=== PATIENT | male | born 1990 | race Caucasian/White ===

== ENCOUNTER → 2020-07-13 15:51 | Outpatient (CLI) | payer BC, SELFPAY | PROVIDERS: PCP Nurse Practitioner Family; Visit Provider Nurse Practitioner Family | DX: Z20.822 Contact with and (suspected) exposure to COVID-19 (principal) | CPT/HCPCS: U0003 ==

== ENCOUNTER 2021-03-28 13:51 | Emergency (ER) | payer BC, SELFPAY ==
--- NOTE | 2021-03-28 14:36 | PC.NURSE ---
PT brought over from [facility]
[2021-03-28 14:37] VITALS: BP 150/101; PULSE 86; RESP 16; TEMP 37; O2SAT 99; BMI 30.7
--- NOTE | 2021-03-28 14:37 | CT_ITS ---
PROCEDURE INFORMATION: Exam: CT Head Without Contrast Exam date and time: 03/28/2021 2:37 PM Age: 30 years old Clinical indication: Syncope and collapse TECHNIQUE: Imaging protocol: Computed tomography of the head without contrast. Radiation optimization: All CT scans at this facility use at least one of these dose optimization techniques: automated exposure control; mA and/or kV adjustment per patient size (includes targeted exams where dose is matched to clinical indication); or iterative reconstruction. COMPARISON: No relevant prior studies available. FINDINGS: Brain: No hemorrhage, mass effect or midline shift. Cerebral ventricles: No ventriculomegaly. Paranasal sinuses: Mucosal thickening noted within both maxillary sinuses. Mastoid air cells: Visualized mastoid air cells are well aerated. Bones/joints: No acute fracture. Soft tissues: No acute changes IMPRESSION: No hemorrhage, mass effect or midline shift.
--- NOTE | 2021-03-28 14:37 | XR_ITS ---
PROCEDURE: XR CHEST PORTABLE CLINICAL HISTORY: syncope COMPARISON: No exams were available for comparison FINDINGS: The cardiomediastinal silhouette and pulmonary vascularity are within normal limits. This is a lordotic projection however the lung alanis are fairly well expanded and appear clear of infiltrate. There is no pleural fluid. No acute bony abnormalities. IMPRESSION: No acute findings. Dictated by: Dr. Chandan Figueroa MD 03/29/2021 15:35 Dr. Chandan Figueroa MD in [place] 03/29/2021 15:35
--- NOTE | 2021-03-28 14:37 | ECG_ITS ---
APPROVED REPORT Exam: Resting ECG HR:79 bpm ECG Measurements Heart Rate 79 AXES IA 140 P 22 QRSd 88 QRS 55 QT 358 T 33 QTc 410 Conclusion Normal sinus rhythm Normal ECG Electronically signed by : Royal Serrano MD 03/29/2021 14:28:30
[2021-03-28 14:49] LABS: Basophils % 0.6 % (0.1-2.0); Eosinophils % 0.6 % (0.1-12.0); Hematocrit 45.6 % (42.0-52.0); Hemoglobin 15.7 g/dL (14.1-18.0); Lymphocytes # 1.5 K/mm3 (0.7-4.5); Lymphocytes % 24.5 % (10-50); Mean Corpuscular HGB Conc 34.3 g/dL (31.8-35.4); Mean Corpuscular Hemoglobin 31.9 pg (27.0-31.2); Mean Platelet Volume 8.9 fl (7.4-10.4); Monocytes # 0.4 K/mm3 (0.1-1.0); Monocytes % 5.7 % (1.7-9.3); Neutrophils # 4.3 K/mm3 (1.8-7.8); Neutrophils % 68.7 % (37.0-80.0); Platelet Count 241 K/mm3 (142-424); Red Blood Count 4.91 M/mm3 (4.60-6.20); Red Cell Distribution Width 12.8 % (11.5-17.5); White Blood Count 6.2 K/mm3 (4.8-10.8)
[2021-03-28 14:52] LABS: Chloride 99 mmol/L (98-107); Potassium 3.9 mmoL/L (3.5-5.1); Sodium 137 mmol/L (136-145)
[2021-03-28 14:54] LABS: Blood Urea Nitrogen 16 mg/dl (9-20); Creatinine Clearance Estimated 173 mL/min (50-200); Estimated Glomerular Filt Rate 115 ml/min (>60); GFR (African American) 139 ML/MIN (>60)
[2021-03-28 14:55] LABS: Alanine Aminotransferase 26 U/L (12-78); Albumin Level 4.6 g/dl (3.5-5.0); Albumin/Globulin Ratio 1.2 (1.1-1.8); Alkaline Phosphatase 68 U/L (38-126); Anion Gap 13.9 mEq/L (5-15); Aspartate Amino Transferase 37 U/L (17-59); Bilirubin,Total 0.6 mg/dl (0.2-1.3); Calcium 9.3 mg/dl (8.4-10.2); Carbon Dioxide 28 mmol/L (22.0-30.0); Globulin 3.7 g/dL (1.3-3.2); Glucose 98 mg/dl (74-100); Total Protein,Serum 8.3 g/dl (6.3-8.2)
[2021-03-28 15:09] LABS: Troponin I < 0.01 ng/ml (0.00-0.034)
[2021-03-28 15:16] LABS: Coronavirus 19, PCR Not Detected (NotDetected); Influenza A, PCR Not Detected (NotDetected); Influenza B, PCR Not Detected (NotDetected)
--- NOTE | 2021-03-28 16:21 | HMH.EDGENADL ---
ED Disposition Clinical Impression: Lightheadedness Disposition: Home, Self-Care Condition on Discharge: Good Additional Instructions: Stay well-hydrated. Follow-up with your outpatient nurse practitioner in the next 2 to 3 days. Return emerge department chest pain, shortness of breath, lightheadedness. Referrals: Juana Bowles APRN [Primary Care Provider] - Time of Disposition: 16:25 - Critical Care Critical Care Time: No Attestation: On 03/28/21, the high probability of a clinically significant, sudden or life threatening deterioration of the following system(s) required my full and direct attention, intervention and personal management. The time I documented below is in addition to time spent performing reported procedures but includes the following listed in this critical care notation. Medical Decision Making - Medical Records Medical records reviewed: Yes: I reviewed the patient's medical records. - Benji Inquiry Pt receiving controlled substance: No Vital Signs: 03/28/21 14:37 Temperature 98.6 F Temperature Source Oral Pulse Rate [Right] 86 Respiratory Rate 16 Blood Pressure [Right Arm] 150/101 H Blood Pressure Mean [Right Arm] 117 Blood Pressure Source [Right Arm] Automatic Cuff Blood Pressure Position [Right Arm] Sitting 02 Sat by Pulse Oximetry 99 Oxygen Delivery Method Room Air - Lab Data Lab results reviewed: Yes: I reviewed the patient's lab results. Lab Results 03/28/21 14:38: WBC 6.2, RBC 4.91, Hgb 15.7, Hct 45.6, MCV 93.0, MCH 31.9 H, MCHC 34.3, RDW 12.8, Plt Count 241, MPV 8.9, Neut % (Auto) 68.7, Lymph % (Auto) 24.5, Branch % (Auto) 5.7, Eos % (Auto) 0.6, Baso % (Auto) 0.6, Neut # (Auto) 4.3, Lymph # (Auto) 1.5, Branch # (Auto) 0.4, Eos # (Auto) 0.0, Baso # (Auto) 0.0 03/28/21 14:38: Sodium 137, Potassium 3.9, Chloride 99, Carbon Dioxide 28, Anion Gap 13.9, BUN 16, Creatinine 0.80, Estimated Creat Clear 173, Estimated GFR 115, Est GFR ( Amer) 139, Glucose 98, Calcium 9.3, Total Bilirubin 0.6, AST 37, ALT 26, Alkaline Phosphatase 68, Troponin I < 0.01, Total Protein 8.3 H, Albumin 4.6, Globulin 3.7 H, Albumin/Globulin Ratio 1.2 03/28/21 14:45: SARS-CoV-2 (PCR) Not detected, Influenza A Untype (PCR) Not detected, Influenza Type B (PCR) Not detected Result diagrams: 03/28/21 14:38 03/28/21 14:38 Orders (Tests/Meds): ORDERS Category Date Time Status XR chest portable Stat Exams 03/28/21 14:37 Taken Troponin I Q3H Lab 03/28/21 17:45 Ordered Troponin I Q3H Lab 03/28/21 20:45 Ordered - CT Data CT Scan: Head Time Received: 16:[address] Reviewed: Yes: I have reviewed the patient's CT results Preliminary Findings: Normal/NAD - ECG Data Tracing #1 I reviewed this ECG and interpreted as documented below: Normal sinus rhythm, no ST elevation or depression, normal intervals, no ectopy. ECG initial impression date: 03/28/21 ECG initial impression time: 14:38 Medical Decision Narrative: 30yo M without significant past medical history is evaluated for what sounds like a near syncopal event. Patient is in no acute distress on initial evaluation. Laboratory studies, EKG, CT of the head are obtained. Laboratory studies are benign, including a negative Covid test. EKG shows normal sinus rhythm without ectopy. CT of the head is benign. Patient is had no further episodes during his observation in the emergency department. Encourage patient to follow-up with his nurse practitioner outpatient for further investigation and management. General Adult HPI - General Chief complaint: Headache Stated complaint: lightheaded, tingling on lt side of head Time Seen by Provider: 03/28/21 16:00 Mode of Arrival: Wheelchair Limitations: No Limitations Description of Symptoms (Recalled from ER Triage Doc. by RN): PT advises this morning while he was at work he developed a headache and became lightheaded, went to the first aid station and thought he was going to pass out. Pt laid
[2021-03-28 16:22] VITALS: BP 130/64; PULSE 87; RESP 16; O2SAT 98
[2021-03-28 16:38] VITALS: BP 128/87; PULSE 84; RESP 16; TEMP 36.8; O2SAT 99
== END 2021-03-28 16:40 | disposition home or self-care (01) ==
LOC: UTC 13:53 → ER 14:35
PROVIDERS: Emergency Provider Family Medicine; PCP Nurse Practitioner Family
DX: R42 Dizziness and giddiness (principal); R51.9 Headache, unspecified; E78.5 Hyperlipidemia, unspecified
CPT/HCPCS: 70450; 71045; 80053; 84484; 85025; 93005; 99284; C9803; U0003; U0005

== ENCOUNTER → 2021-04-04 10:55 | Outpatient (CLI) | payer BC, SELFPAY ==
--- NOTE | 2021-04-04 11:00 | XR_ITS ---
PROCEDURE: XR KUB CLINICAL INDICATION: RT FLANK PAIN,URINARY FREQUENCY COMPARISON: No exams were available for comparison FINDINGS: Gas pattern-The bowel gas pattern is unremarkable. No obvious obstruction. Calcifications-No abnormal calcifications are evident. No obvious renal or ureteral calculi. Bones-No acute bony anomalies evident. IMPRESSION: No acute findings. Dictated by: Sujit Patel MD 04/04/2021 11:47 Sujit Patel MD in [place] 04/04/2021 11:47
== END ==
PROVIDERS: PCP Nurse Practitioner Family; Visit Provider Nurse Practitioner Family
DX: R10.9 Unspecified abdominal pain (principal); R35.0 Frequency of micturition
CPT/HCPCS: 74018

== ENCOUNTER → 2021-06-19 10:41 | Outpatient (CLI) | payer BC, SELFPAY | PROVIDERS: Visit Provider Nurse Practitioner | DX: U07.1 COVID-19 (principal) | CPT/HCPCS: C9803; U0003; U0005 ==

== ENCOUNTER 2021-06-20 14:12 | Emergency (ER) | payer BC, SELFPAY ==
[2021-06-20 16:17] VITALS: BP 127/85; PULSE 89; RESP 18; TEMP 36.9; O2SAT 99; BMI 28.8
--- NOTE | 2021-06-20 16:52 | HMH.EDUTC ---
[facility] [place] Clinical Impression: COVID-19 Disposition: Home, Self-Care Condition on Discharge: Good Instructions: Preventing the Spread of Coronavirus Discharge Instructions, DI for COVID-19 (Suspected or Confirmed ) Additional Instructions: Drink plenty of fluids. Take tylenol or ibuprofen for pain or fever. Take the medications as directed. Follow up with your regular doctor. GO TO THE ER FOR ANY WORSENING SYMPTOMS Prescriptions: Albuterol Sulfate [Albuterol Sulfate Hfa] 2 puffs IH Q6HP PRN 30 Days #1 each PRN Reason: Shortness Of Breath Transmission Status: Pending to [facility] [employer] [facility] # Brompheniramine/Pseudoephed/Dm [Bromfed Dm Cough Syrup] 5 ml PO Q6HP PRN #240 ml PRN Reason: Cough Transmission Status: Pending to [facility] [employer] [facility] # methylPREDNISolone [Medrol] 4 mg PO DIRECTED 6 Days #21 packet Transmission Status: Pending to [facility] [employer] [facility] # Azithromycin [Z-Nathan 250mg Tab*] 250 mg PO UD DOSE PK #6 tab Transmission Status: Pending to [employer] [facility] # Referrals: Juana Bowles APRN [Primary Care Provider] - Forms: Work/School Release Time of Disposition: 17:21 Medical Decision Making - Medical Records Medical records reviewed: No: I reviewed the patient's medical records. - Benji Inquiry Pt receiving controlled substance: No Vital Signs: 06/20/21 16:17 Temperature 98.4 F Temperature Source Oral Pulse Rate [Left] 89 Respiratory Rate 18 Blood Pressure [Right Arm] 127/85 Blood Pressure Mean [Right Arm] 99 02 Sat by Pulse Oximetry 99 - Lab Data Lab results reviewed: Yes: I reviewed the patient's lab results. [facility] [place] - General Stated complaint: sore throat,cough,headache Time Seen by Provider: 06/20/21 16:52 Mode of Arrival: Ambulatory Source of Information: Patient Limitations: No Limitations Description of Symptoms (Recalled from Triage Doc. by RN): PT WAS COVID TESTED TUES AND UNSURE OF RESULTS. UPON LOOKING PT IS POSITIVE FOR COVID. PT C/O FEVER, CHILLS, SORE THROAT, COUGH, LUCERO, CONGESTION, BODY ACHES AND CHILLS. HEENT Symptoms (Recalled from RN notes): Yes (SORE THROAT, LUCERO AND CONGESTION) Resp Symptoms (Recalled from RN notes): Yes (COUGH) Skin Symptoms (Recalled from RN notes): No MS Symptoms (Recalled from RN notes): No Functional Status (Recalled from RN notes): WNL - History of Present Illness Provider Complaint: He tested positive for covid-19 on thursday. He was unaware of his results until he arrived here today. He is having cough, chest congestion, scratchy sore throat and sinus congestion. He has also been running a fever up to 101. He has a history of asthma, but he has not had much trouble or symptoms with his asthma in several years. - Related Data Home Medications Medication Instructions Recorded Confirmed Loratadine [Allergy Relief] 10 mg PO DAILY 03/28/21 03/28/21 Previous Rx's Medication Instructions Recorded Albuterol Sulfate [Albuterol 2 puffs IH Q6HP PRN 30 Days #1 each 06/20/21 Sulfate Hfa] Azithromycin [Z-Nathan 250mg Tab*] 250 mg PO UD DOSE PK #6 tab 06/20/21 Brompheniramine/Pseudoephed/Dm 5 ml PO Q6HP PRN #240 ml 06/20/21 [Bromfed Dm Cough Syrup] methylPREDNISolone [Medrol] 4 mg PO DIRECTED 6 Days #21 06/20/21 packet Allergies Allergy/AdvReac Type Severity Reaction Status Date / Time No Known Allergies Allergy Verified 06/25/18 16:31 - Worker's Comp Is this a Worker's Comp case?: No H History - Hepatitis A Screen Drug use history?: No High risk sexual behaviors?: No History of sexually transmitted infection?: No Currently employed?: No Childcare worker?: No Do you have indoor plumbing?: Yes Do you have electricity?: Yes Attestation statement:: This patient has been screened for Hepatitis A risk factors. I have reviewed the patient's past medical history: Yes Medical History: Reports:: Hyperlipidemia Other Surgeries: Yes: No Previous Surgery
[2021-06-20 17:28] VITALS: BP 127/85; PULSE 89; RESP 18; TEMP 36.9
== END 2021-06-20 17:30 | disposition home or self-care (01) ==
PROVIDERS: Emergency Provider Nurse Practitioner Family; PCP Nurse Practitioner Family
DX: U07.1 COVID-19 (principal); E78.5 Hyperlipidemia, unspecified
CPT/HCPCS: 99202; G0463

== ENCOUNTER 2021-06-26 11:48 | Emergency (ER) | payer BC, SELFPAY ==
[2021-06-26 12:50] VITALS: BP 141/96; PULSE 89; RESP 20; TEMP 36.8; O2SAT 99; BMI 28.8
--- NOTE | 2021-06-26 13:18 | HMH.EDUTC ---
[facility] [place] Impression: Bronchitis Sinusitis Qualifiers: Sinusitis location: unspecified location Chronicity: unspecified Qualified Code(s): J32.9 - Chronic sinusitis, unspecified Disposition: Home, Self-Care Condition on Discharge: Good Instructions: Acute Bronchitis, DI for COVID-19 (Suspected or Confirmed ) Additional Instructions: ? Start antibiotic today. Be sure to complete entire prescription even if feeling better ? Monitor temp. Tylenol every 4 hours as needed and / or ibuprofen every 6 hours as needed ( As long as your primary care physician has told you that it ok to take both. For fever/aches/pains ER if no less than 101 despite Tylenol or Motrin ? Humidifier/vaporizer or hot steamy shower ? Inhaler every 4-6 hours as needed like we discussed. If unsure how to use it, ask pharmacist to demonstrate how. Should help open airways and improve cough, wheezing, and shortness of breath ? Mucinex for your cough . Be sure to drink lots of water. Follow up IMMEDIATELY for new or worsening of symptoms OR no noticeable improvement over the next 48-72 hours. 911 immediately for any life threatening symptoms such as chest pain or difficulty breathing Prescriptions: Doxycycline Monohydrate [Doxycycline [place] 100mg Tab] 100 mg PO Q12 7 Days #14 tab Transmission Status: Received by [facility] # guaiFENesin [Mucinex] 1,200 mg PO Q12H PRN #10 tab PRN Reason: Congestion Transmission Status: Received by [facility] # Referrals: Juana Bowles APRN [Primary Care Provider] - As needed Forms: Work/School Release Medical Decision Making - Benji Inquiry Pt receiving controlled substance: No Benji was queried for this patient: No Vital Signs: 06/26/21 12:50 06/26/21 13:36 Temperature 98.2 F 98.2 F Temperature Source Oral Pulse Rate 89 Pulse Rate [Right Brachial] 89 Respiratory Rate 20 20 Blood Pressure 141/96 H Blood Pressure [Right Arm] 141/96 H Blood Pressure Mean [Right Arm] 111 Blood Pressure Source [Right Arm] Automatic Cuff Blood Pressure Position [Right Arm] Sitting 02 Sat by Pulse Oximetry 99 Oxygen Delivery Method Room Air Orders (Tests/Meds): ED MEDICATIONS Discontinued Medications Generic Name Dose Route Start Last Admin Trade Name Freq PRN Reason Stop Dose Admin Methylprednisolone Sodium Succinate 125 mg 06/26/21 13:25 06/26/21 13:36 Methylprednisolone Sod Succ 125mg Vial IM 06/26/21 13:26 125 mg ONCE ONE Administration Medical Decision Narrative: discussed chest xray with patient and he declined at this time [facility] [place] - General Stated complaint: covid pos/congestion, soa, cough Time Seen by Provider: 06/26/21 13:18 Mode of Arrival: Ambulatory Source of Information: Patient Limitations: No Limitations Description of Symptoms (Recalled from Triage Doc. by RN): PATIENT REPORTS HE TESTED POSITIVE FOR COVID 9 DAYS AGO. HE STATES HE IS STILL HAVING CHEST CONGESTION, SOA, AND HEADACHE HEENT Symptoms (Recalled from RN notes): Yes Resp Symptoms (Recalled from RN notes): Yes Skin Symptoms (Recalled from RN notes): No MS Symptoms (Recalled from RN notes): No Functional Status (Recalled from RN notes): WNL - History of Present Illness Provider Complaint: Patient state that he was positive for COVID about 9-10 days ago and he is worried it has moved into his chest State that he has a cough, with chest congestion and at times he is able to cough up some mucous States that he is having pressure like feeling in his sinus and draiange in the back of his throat States that he was feeling better from the covid but the last few days these symptoms started - Related Data Previous Rx's Medication Instructions Recorded Doxycycline Monohydrate 100 mg PO Q12 7 Days #14 tab 06/26/21 [Doxycycline [place] 100mg Tab] guaiFENesin [Mucinex] 1,200 mg PO Q12H PRN #10 tab 06/26/21 Allergies Allergy/AdvReac Type Severity Reacti
[2021-06-26 13:36] VITALS: BP 141/96; PULSE 89; RESP 20; TEMP 36.8; O2SAT 99
== END 2021-06-26 13:46 | disposition home or self-care (01) ==
PROVIDERS: Emergency Provider Nurse Practitioner; PCP Nurse Practitioner Family
DX: J20.9 Acute bronchitis, unspecified (principal); Z86.16 Personal history of COVID-19; J32.9 Chronic sinusitis, unspecified
CPT/HCPCS: 96372; 99202; G0463

== ENCOUNTER 2021-09-22 07:36 | Emergency (ER) | payer BC, SELFPAY ==
[2021-09-22 07:37] VITALS: BP 142/95; PULSE 110; RESP 16; TEMP 37.1; O2SAT 98; BMI 29.7
--- NOTE | 2021-09-22 07:54 | XR_ITS ---
PROCEDURE INFORMATION: Exam: XR Chest Exam date and time: 09/22/2021 8:02 AM Age: 31 years old Clinical indication: Shortness of breath and other: Congestion; Additional info: SOB TECHNIQUE: Imaging protocol: XR of the chest. Views: 2 views. COMPARISON: CR XR CHEST PORTABLE 03/28/2021 2:50 PM FINDINGS: Lungs: No focal airspace disease. Pleural spaces: Unremarkable. No pleural effusion. No pneumothorax. Heart/Mediastinum: Cardiomediastinal silhouette is within normal limits. Bones/joints: Unremarkable. IMPRESSION: No acute cardiopulmonary abnormality.
--- NOTE | 2021-09-22 08:04 | HMH.EDGENADL ---
ED Disposition Clinical Impression: Exposure to chemical inhalation Acute sinusitis Qualifiers: Sinusitis location: unspecified location Recurrence: not specified as recurrent Qualified Code(s): J01.90 - Acute sinusitis, unspecified Otitis media Qualifiers: Otitis media type: suppurative Chronicity: acute Laterality: right Recurrence: not specified as recurrent Spontaneous tympanic membrane rupture: without spontaneous rupture Qualified Code(s): H66.001 - Acute suppurative otitis media without spontaneous rupture of ear drum, right ear Disposition: Home, Self-Care Condition on Discharge: Good Instructions: DI for Sinusitis Prescriptions: Amoxicillin [Amoxicillin 500mg Cap] 500 mg PO TID #30 cap Transmission Status: Pending to [id number] Guaifenesin/Pseudoephedrne HCl [Guaifenesin-Pse ER 600-60 mg] 1 each PO Q12H #10 tab Transmission Status: Pending to [id number] Referrals: Juana Bowles APRN [Primary Care Provider] - - Critical Care Critical Care Time: No Attestation: On 09/22/21, the high probability of a clinically significant, sudden or life threatening deterioration of the following system(s) required my full and direct attention, intervention and personal management. The time I documented below is in addition to time spent performing reported procedures but includes the following listed in this critical care notation. Medical Decision Making - Benji Inquiry Pt receiving controlled substance: No Vital Signs: 09/22/21 07:37 Temperature 98.7 F Temperature Source Oral Pulse Rate [Radial] 110 H Respiratory Rate 16 Blood Pressure [Right Arm] 142/95 H Blood Pressure Mean [Right Arm] 110 Blood Pressure Position [Right Arm] Sitting 02 Sat by Pulse Oximetry 98 Oxygen Delivery Method Room Air Orders (Tests/Meds): ORDERS Category Date Time Status Chest XR 2 view (NOT portable) [XR chest 2V] Stat Exams 09/22/21 07:54 Taken - Radiology Data #1 Image(s): Chest Image Reviewed: Yes I reviewed the patient's radiology image Preliminary Findings: Normal/NAD - ECG Data Tracing #1 EKG interpreted by Grey Giron MD: Rhythm: sinus tachycardia Rate: 104 [place]: normal Ectopy: none Conduction: normal ST Segment Changes: none T Wave Changes: none Q Waves: none No evidence of acute ischemia or injury General Adult HPI - General Chief complaint: Shortness of Breath/Dyspnea Stated complaint: SOA, bloody mucus Time Seen by Provider: 09/22/21 08:04 Mode of Arrival: Ambulatory Limitations: No Limitations Description of Symptoms (Recalled from ER Triage Doc. by RN): TO ED PER [employer] CAR WITH C/O SOB, SPITTING UP BLOODY MUCOUS HEADACHE STARTING YESTERDAY STATES AT WORK AND CLEANING AN EMPTY BUCKET THAT HAD INDUSTRIAL WAX IN IT USING BAKING SODA AND HOT WATER. THEN STARTED WITH HEADACHE AND SOB WHILE CLEANING - History of Present Illness HPI narrative: States he started getting ill yesterday. Initially just had a sore throat. During the night he developed yellow mucus tinged with blood that he is blowing out of his nose and spitting up from his throat. He says he has no cough and does not cough up any phlegm or blood, states it is all coming from drainage from his throat. He says the drainage in his throat makes it difficult for him to breathe. He does not have chest pain. No fever. No vomiting or diarrhea. No exposure to any illnesses known. Also right ear hurt couple of days ago. States that he cleaned out some buckets with industrial wax in them using hot water and baking soda yesterday. He was doing this outdoors. He says that he developed a headache while doing so. He is concerned that he might of had some sort of vapor exposure. He brings in a plastic bag with tissue and it to show me what he has been coughing up. It looks like yellow mucus with some flecks or tinges of blood. - Related Data Previous Rx's Medication Instructions
--- NOTE | 2021-09-22 08:06 | ECG_ITS ---
APPROVED REPORT Exam: Resting ECG HR:104 bpm ECG Measurements Heart Rate 104 AXES IL 161 P 71 QRSd 87 QRS 51 QT 321 T 33 QTc 381 Conclusion SINUS TACHYCARDIA ABNORMAL RHYTHM ECG UNCONFIRMED REPORT Electronically signed by : Royal Serrano MD 09/26/2021 08:12:54
[2021-09-22 08:39] VITALS: BP 133/93; PULSE 98; RESP 18; TEMP 36.6; O2SAT 94
== END 2021-09-22 08:41 | disposition home or self-care (01) ==
PROVIDERS: Emergency Provider Emergency Medicine; PCP Nurse Practitioner Family
DX: J01.90 Acute sinusitis, unspecified (principal); H66.001 Acute suppurative otitis media without spontaneous rupture of ear drum, right ear; Z77.098 Contact with and (suspected) exposure to other hazardous, chiefly nonmedicinal, chemicals
CPT/HCPCS: 71046; 93005; 99283

== ENCOUNTER 2021-12-01 08:44 | Emergency (ER) | payer BC, SELFPAY ==
--- NOTE | 2021-12-01 09:17 | HMH.EDUTC ---
[facility] [place] Dis[place] Clinical Impression: Bronchitis, Exposure to COVID-19 virus Pharyngitis Qualifiers: Pharyngitis/tonsillitis etiology: unspecified etiology Qualified Code(s): J02.9 - Acute pharyngitis, unspecified Disposition: Home, Self-Care Condition on Discharge: Good Instructions: Preventing the Spread of Coronavirus Discharge Instructions, DI for COVID-19 (Suspected or Confirmed ), DI for Strep Throat Additional Instructions: Drink plenty of fluids. Take tylenol or ibuprofen for pain or fever. Take the medications as directed. Follow up with your regular doctor. GO TO THE ER FOR ANY WORSENING SYMPTOMS Quarantine until you know the results of your covid-19 test. Notify your school or workplace of your results and follow their instructions regarding return to work/school. Prescriptions: Amoxicillin/Potassium Clav [Amox-Clav 875-125 mg Tablet] 1 tab PO BID #20 tab Transmission Status: Pending to [facility] # methylPREDNISolone [Medrol] 4 mg PO DIRECTED 6 Days #21 packet Transmission Status: Pending to [facility] # Referrals: Juana Bowles APRN [Primary Care Provider] - Medical Decision Making - Medical Records Medical records reviewed: No: I reviewed the patient's medical records. - Benji Inquiry Pt receiving controlled substance: No Vital Signs: 12/01/21 09:18 Temperature 98.4 F Temperature Source Oral Pulse Rate [Left] 104 H Respiratory Rate 17 Blood Pressure [Right Arm] 125/84 Blood Pressure Mean [Right Arm] 97 02 Sat by Pulse Oximetry 98 - Lab Data Lab results reviewed: Yes: I reviewed the patient's lab results. Orders (Tests/Meds): ORDERS Category Date Time Status Covid-19 Nasal PCR ([facility]) Routine Lab 12/01/21 09:03 Received Strep Scrn Group A (Rapid) Stat Lab 12/01/21 09:03 Received [facility] [place] HPI - General Stated complaint: bilateral ear ache, body aches, headache Time Seen by Provider: 12/01/21 09:17 - History of Present Illness Provider Complaint: He states that for the past 2 days he has had a very sore throat, chills, body aches and he has felt bad. He has been exposed to covid-19 through his work. - Related Data Previous Rx's Medication Instructions Recorded Doxycycline Monohydrate 100 mg PO Q12 7 Days #14 tab 06/26/21 [Doxycycline [place] 100mg Tab] guaiFENesin [Mucinex] 1,200 mg PO Q12H PRN #10 tab 06/26/21 Amoxicillin [Amoxicillin 500mg 500 mg PO TID #30 cap 09/22/21 Cap] Guaifenesin/Pseudoephedrne HCl 1 each PO Q12H #10 tab 09/22/21 [Guaifenesin-Pse ER 600-60 mg] Amoxicillin/Potassium Clav 1 tab PO BID #20 tab 12/01/21 [Amox-Clav 875-125 mg Tablet] methylPREDNISolone [Medrol] 4 mg PO DIRECTED 6 Days #21 12/01/21 packet Allergies Allergy/AdvReac Type Severity Reaction Status Date / Time No Known Allergies Allergy Verified 12/01/21 09:23 [facility] History - Hepatitis A Screen Attestation statement:: This patient has been screened for Hepatitis A risk factors. I have reviewed the patient's past medical history: Yes Medical History: Reports:: Hyperlipidemia Other Surgeries: Yes: No Previous Surgery - Social History Smoking Status: Never smoker Alcohol Intake: current Alcohol Intake Frequency:: holidays/special occasions only Occupational Status: employed Housing: house Household Members: family Family Hx:: No significant family history ROS Obtained: Yes All systems reviewed & no additional complaints - Constitutional Constitutional: Reports chills, Reports fever(s), Reports poor appetite, Reports malaise - Eyes Eyes: Denies eye discharge - ENT Ears, Nose, Mouth, and Throat: Reports as per HPI - Cardiovascular Cardiovascular: Denies chest pain - Respiratory Respiratory: Denies chest congestion, Reports cough Physical Exam - General General appearance: alert, in no apparent distress - Head Head exam: atraumatic, normocephalic, normal insp
[2021-12-01 09:18] VITALS: BP 125/84; PULSE 104; RESP 17; TEMP 36.9; O2SAT 98; BMI 28.8
[2021-12-01 09:25] LABS: Strep Scrn Group A (Rapid) Negative (Negative)
[2021-12-01 09:56] VITALS: BP 125/84; PULSE 104; RESP 17; TEMP 36.9
== END 2021-12-01 09:56 | disposition home or self-care (01) ==
PROVIDERS: Emergency Provider Nurse Practitioner Family; PCP Nurse Practitioner Family
DX: J40 Bronchitis, not specified as acute or chronic (principal); U07.1 COVID-19; J02.9 Acute pharyngitis, unspecified; R50.9 Fever, unspecified; R52 Pain, unspecified
CPT/HCPCS: 87430; 99212; C9803; G0463; U0003; U0005

== ENCOUNTER → 2022-06-06 10:51 | Outpatient (CLI) | payer BC, SELFPAY | PROVIDERS: PCP Nurse Practitioner Family; Visit Provider Internal Medicine Cardiovascular Disease | DX: R06.09 Other forms of dyspnea (principal); R07.89 Other chest pain; R42 Dizziness and giddiness; R55 Syncope and collapse; R94.31 Abnormal electrocardiogram [ECG] [EKG]; K21.9 Gastro-esophageal reflux disease without esophagitis | CPT/HCPCS: 93270 ==

== ENCOUNTER → 2022-06-10 17:15 | Outpatient (CLI) | payer BC, SELFPAY ==
--- NOTE | 2022-06-10 17:27 | MR_ITS ---
PROCEDURE INFORMATION: Exam: MR Head Without Contrast Exam date and time: 06/10/2022 5:27 PM Age: 31 years old Clinical indication: Headaches and dizziness. TECHNIQUE: Imaging protocol: Magnetic resonance imaging of the head without contrast. COMPARISON: CT HEAD/BRAIN WO CON 03/28/2021 2:51 PM FINDINGS: Brain: Normal. No acute infarct. No hemorrhage. No significant white matter disease. No edema. Cerebral ventricles: Normal. No ventriculomegaly. Bones/joints: Unremarkable. Paranasal sinuses: There are retention cysts/polyps in both maxillary sinuses. Mastoid air cells: Normal as visualized. No mastoid effusion. Orbital cavities: Unremarkable. Soft tissues: Unremarkable. IMPRESSION: No acute findings.
== END ==
PROVIDERS: PCP Nurse Practitioner Family; Visit Provider Nurse Practitioner Family
DX: R51.9 Headache, unspecified (principal); R42 Dizziness and giddiness
CPT/HCPCS: 70551

== ENCOUNTER 2022-06-15 09:26 | Emergency (ER) | payer BC, SELFPAY ==
--- NOTE | 2022-06-15 09:31 | EXP.UTC ---
Discharge Plan Disposition Patient Disposition: Home, Self-Care Condition: Good Prescriptions Prescriptions: New azithromycin [Zithromax] 250 mg tablet 250 mg PO UD DOSE PK Qty: 6 0RF Rx Instructions: Take two (2) tablets today, then one (1) tablet days #2 thru #5 benzonatate [benzonatate] 100 mg capsule 100 mg PO TIDP PRN (Reason: Cough) Qty: 30 0RF methylprednisolone 4 mg Tablets,Dose Pack 4 mg PO DIRECTED Qty: 21 0RF Referrals Follow up/Referrals: Juana Bowles APRN [Primary Care Provider] - See instructions Activity Restrictions/Add. Instructions Additional Instructions/Restrictions: Drink plenty of fluids. Take tylenol or ibuprofen for pain or fever. Take the medications as directed. Follow up with your regular doctor. GO TO THE ER FOR ANY WORSENING SYMPTOMS Stop the amoxicillin that you are currently taking. Clinical Impressions Clinical Impression: Bronchitis, Sinusitis Instructions Patient Instructions: Sinusitis, DI for Sinusitis, DI for Acute Bronchitis Discharge ED Provider: Evin Marshall [facility] [place] General Stated complaint: SOA, sore throat,sinus drainage Time Seen by Provider: 06/15/22 09:31 History of Present Illness Provider Complaint: He states that for the past 7 days he has had sinus and chest congestion. He has had a productive cough that keeps him up at night. He was tested for strep, covid-19, and influenza and the results were negative 4 days ago. He states that he was started on amoxicillin then and he has not had any improvement. Related Data Previous Rx's Medication Instructions Recorded azithromycin 250 mg tablet 250 mg PO UD DOSE PK #6 tabs 06/15/22 (Zithromax) benzonatate 100 mg capsule 100 mg PO TIDP PRN Cough #30 caps 06/15/22 methylprednisolone 4 mg tablets in 4 mg PO DIRECTED #21 tabs 06/15/22 a dose pack Allergies Allergy/AdvReac Type Severity Reaction Status Date / Time No Known Allergies Allergy Verified 06/15/22 09:58 [facility] Disclaimer: The information contained in this section may have been updated after the patient was seen, as this information can be updated by other users. Social History Smoking Status: Never smoker alcohol intake: current current occupational status: employed Travel in the last 8 weeks: None household members: family housing: house ROS Obtained: Yes All systems reviewed & no additional complaints except as documented Constitutional Constitutional: Reports chills and Denies fever(s) Eyes Eyes: Denies eye discharge ENT Ears, Nose, Mouth, and Throat: Reports as per HPI Cardiovascular Cardiovascular: Denies chest pain Respiratory Respiratory: Denies chest congestion and Reports cough Gastrointestinal Gastrointestingal: Reports nausea; Denies abdominal pain, constipation, cramping, diarrhea or vomiting Musculoskeletal Musculoskeletal: Denies arthralgias Integumentary/Breasts Skin/Breast: Denies rash Neurologic Neurologic: Denies paresthesias Physical Exam General General appearance: alert and in no apparent distress Head Head exam: atraumatic, normocephalic and normal inspection Eye Eye exam: Present normal appearance, PERRL and EOMI ENT ENT exam: Present normal exam, normal oropharynx, mucous membranes moist, TM's normal bilaterally and normal external ear exam Neck Neck exam: Present normal inspection, full ROM and trachea midline; Absent meningismus or lymphadenopathy Chest Chest inspection: Present normal inspection and symmetric chest wall rise; Absent tenderness Respiratory Respiratory exam: Present normal lung sounds bilaterally; Absent respiratory distress Cardiovascular Cardiovascular exam: Present regular rate and normal rhythm; Absent JVD Abdominal Exam Abdominal exam: Present soft and normal bowel sounds; Absent distention, tenderness or guarding Extremities Exam Extremities exam: Presen
[2022-06-15 09:35] VITALS: BP 134/87; PULSE 93; RESP 20; TEMP 36.8; O2SAT 97; BMI 28.5
[2022-06-15 09:55] LABS: UTC Influenza A Antigen Negative (Negative); UTC Influenza B Antigen Negative (Negative)
[2022-06-15 10:15] VITALS: BP 134/87; PULSE 93; RESP 20; TEMP 36.7; O2SAT 97
== END 2022-06-15 10:15 | disposition home or self-care (01) ==
PROVIDERS: Emergency Provider Nurse Practitioner Family; PCP Nurse Practitioner Family
DX: J40 Bronchitis, not specified as acute or chronic (principal); J32.9 Chronic sinusitis, unspecified
CPT/HCPCS: 87804; 99212; 99213; G0463

== ENCOUNTER → 2022-06-16 10:59 | Outpatient (CLI) | payer BC, SELFPAY ==
--- NOTE | 2022-06-16 11:02 | CA_ITS ---
APPROVED REPORT EXAM: Comprehensive 2D, Doppler, and color-flow Echocardiogram Edge Inker Heels: Ann Ro, HARMONY, RVS Ht: 5 ft 8 in Wt: 188lbs BSA: 1.99 BP: 119/65 mmHg Indications: SOA, Abn EKG 2D Dimensions Aortic Root 2.81 cm LA Volume 46.40 mL Left Atrium 2.54 cm LA Volume Index 22.70 mL/m2 (M/F) 16-34 LVOT 1.91 cm (M/F) 1.5-2.5 M-Mode Dimensions RVDd 3.28 cm (0.9-2.6) LA Diam 3.80 cm (1.9-4.0) LVDd 4.42 cm (3.5-5.7) Ao Diam 3.16 cm (2.0-3.7) LVDs 3.01 cm (3.5-5.7) IVSd 0.97 cm (0.6-1.1) PWd 1.00 cm (0.6-1.1) EF (Teich) 60.20% EPSs 0.30 cm FS 31.90% EDV (Teich) 88.60 mL TAPSE 2.64 (<1.7) ESV (Teich) 35.30 mL LV Diastology E Decel Time 157.00 (160-240 msec) E/A Ratio 0.98 MED E' 10.50 (< 7 cm/sec) MED A' 13.00 cm/s E'/MED E' Ratio 9.30 (>14) LAT E' 15.80 (<10 cm/sec) LAT A' 13.40 cm/s E/LAT E' Ratio 6.18 (>14) Aortic Valve LVOT Max 96.00 (70-110 cm/s) LVOT VTI 19.55 cm AoV Peak Osei. 133.00 (50-130 cm/s) AO Peak GR. 7.10 mmHg AO Mean GR. 3.60 (<5 mmHg) AO VTI 24.73 (18-25 cm) CHRIS (VTI) 2.27 (2.5-4.5 cm2) Mitral Valve MV A Velocity 100.00 (40-130 cm/s) E/A Ratio 0.98 MV Decel. Time 157.00 (160-240 ms) Pulmonary Valve PV Peak Velocity 121.00 (50-150 cm/s) Tricuspid Valve TR P. Velocity 270.00 cm/s RAP Estimate 10.00 mmHg RVSP 39.10 mmHg Left Ventricle Left atrium is normal size, left ventricle is normal size, estimated ejection fraction 55% with no regional wall motion abnormality, diastolic parameters are within normal range. Right Ventricle Right atrium and right ventricle qualitatively mildly enlarged with normal contractility. Aortic Valve Aortic valve is grossly normal there is no aortic stenosis aortic insufficiency. Mitral Valve Mitral valve grossly normal, there is trace mitral regurgitation. Tricuspid Valve Tricuspid valve grossly normal, there is mild tricuspid regurgitation, calculated right ventricular systolic pressure 29 mmHg. Pulmonic Valve Pulmonic valve is poorly visualized. Great Vessels Aortic root is normal size. Inferior vena cava is normal size with normal inspiratory collapse. Pericardium No significant pericardial effusion noted. Conclusion 1. Normal left ventricular size preserved left ventricular systolic function, estimated ejection fraction 55% with no regional wall motion abnormality, diastolic parameters are within normal range. 2. Qualitatively mildly enlarged right ventricle with normal contractility. 3. Trace mitral and mild tricuspid regurgitation, calculated right ventricular systolic pressure 39 mmHg. 4. No significant pericardial effusion. 5. Inferior vena cava is normal size with normal inspiratory collapse. Electronically signed by : Arpit Leung MD 06/17/2022 06:02:54
== END ==
PROVIDERS: PCP Nurse Practitioner Family; Visit Provider Internal Medicine Cardiovascular Disease
DX: R06.09 Other forms of dyspnea (principal); R07.89 Other chest pain; R42 Dizziness and giddiness; R55 Syncope and collapse; K21.9 Gastro-esophageal reflux disease without esophagitis; R94.31 Abnormal electrocardiogram [ECG] [EKG]
CPT/HCPCS: 93306

== ENCOUNTER → 2022-06-19 11:23 | Outpatient (CLI) | payer BC, SELFPAY ==
--- NOTE | 2022-06-19 11:26 | XR_ITS ---
FINAL REPORT CLINICAL HISTORY: dyspnea, cough COMPARISON: 09/22/2021 FINDINGS: PA and lateral views of the chest were obtained. The cardiac and mediastinal silhouettes are within normal limits. The left perihilar nodule is unchanged. The lungs are otherwise clear. There is no pleural effusion or pneumothorax. No acute osseous abnormality is identified. IMPRESSION: No radiographic evidence of acute cardiac or pulmonary disease. Reviewed, Interpreted and Dictated by Angélica Gee MD Transcribed by Suzanne Ibarra Authenticated and [facility]
== END ==
PROVIDERS: PCP Nurse Practitioner Family; Visit Provider Nurse Practitioner Family
DX: R05.9 Cough, unspecified (principal); R06.09 Other forms of dyspnea; R06.2 Wheezing
CPT/HCPCS: 71046

== ENCOUNTER → 2022-12-03 14:22 | Outpatient (CLI) | payer BC, SELFPAY ==
[2022-12-03 13:27] LABS: Adenovirus F 40/41, stool Not Detected (NotDetected); Cryptosporidium Not Detected (NotDetected); Cyclospora Cayetanesis Not Detected (NotDetected); Entamoeba histolytica Not Detected (NotDetected); Enteropathogenic E coli Not Detected (NotDetected); Enterotoxigenic E coli Not Detected (NotDetected); Giardia lamblia Not Detected (NotDetected); Norovirus Not Detected (NotDetected); Plesimonas Shigalloides, PCR Not Detected (NotDetected); Rotavirus A Not Detected (NotDetected); Salmonella, PCR Not Detected (NotDetected); Sapovirus Not Detected (NotDetected); Shiga-like toxin E coli Not Detected (NotDetected); Shigella Enterovasive E coli Not Detected (NotDetected); Vibrio Cholerae Not Detected (NotDetected); Vibrio, PCR Not Detected (NotDetected); Yersinia Entercolitica, PCR Not Detected (NotDetected)
[2022-12-03 19:47] LABS: Campylobacter Detected (NotDetected); Clostridium Difficile A/B, PCR Detected (NotDetected); Enteroaggregative E coli Detected (NotDetected)
[2022-12-03 19:48] LABS: Astrovirus Detected (NotDetected)
[2022-12-06 07:20] LABS: H. pylori Stool Ag, EIA Negative (Negative)
== END ==
PROVIDERS: PCP Nurse Practitioner Family; Visit Provider Nurse Practitioner Family
DX: R10.9 Unspecified abdominal pain (principal); R19.7 Diarrhea, unspecified; R14.0 Abdominal distension (gaseous); A08.32 Astrovirus enteritis; A04.5 Campylobacter enteritis; A04.72 Enterocolitis due to Clostridium difficile, not specified as recurrent; A04.0 Enteropathogenic Escherichia coli infection
CPT/HCPCS: 87045; 87338; 87507

== ENCOUNTER → 2023-01-21 14:52 | Outpatient (CLI) | payer BC, SELFPAY ==
[2023-01-21 15:19] LABS: Basophils % 0.7 % (0.1-2.0); Eosinophils # 0.1 K/mm3 (0.0-0.4); Eosinophils % 1.8 % (0.1-12.0); Hematocrit 46.8 % (42.0-52.0); Hemoglobin 16.3 g/dL (14.1-18.0); Lymphocytes # 2.5 K/mm3 (0.7-4.5); Lymphocytes % 43.1 % (10-50); Mean Corpuscular HGB Conc 34.8 g/dL (31.8-35.4); Mean Corpuscular Hemoglobin 31.9 pg (27.0-31.2); Mean Corpuscular Volume 91.7 fl (80-94); Mean Platelet Volume 8.8 fl (7.4-10.4); Monocytes # 0.3 K/mm3 (0.1-1.0); Monocytes % 5.2 % (1.7-9.3); Neutrophils # 2.9 K/mm3 (1.8-7.8); Neutrophils % 49.3 % (37.0-80.0); Platelet Count 202 K/mm3 (142-424); Red Cell Distribution Width 13.4 % (11.5-17.5); White Blood Count 5.9 K/mm3 (4.8-10.8)
[2023-01-21 15:49] LABS: Alanine Aminotransferase 29 U/L (12-78); Albumin Level 4.4 g/dl (3.5-5.0); Alkaline Phosphatase 67 U/L (38-126); Anion Gap 15.1 mEq/L (5-15); Aspartate Amino Transferase 31 U/L (17-59); Bilirubin,Indirect 0.4 mg/dL (0.0-0.9); Bilirubin,Total 0.4 mg/dl (0.2-1.3); Bilirubin,Unconjugated 0.7 mg/dL (0.0-1.1); Blood Urea Nitrogen 16 mg/dl (9-20); Calcium 9.3 mg/dl (8.4-10.2); Carbon Dioxide 25 mmol/L (22.0-30.0); Chloride 106 mmol/L (98-107); Chol/HDL Ratio 8.9 (1-3.5); Cholesterol 240 mg/dl (140-200); Estimated Glomerular Filt Rate 114 ml/min (>60); GFR (African American) 137 ML/MIN (>60); Glucose 97 mg/dl (74-100); HDL Cholesterol 27 mg/dl (40-60); Potassium 4.1 mmoL/L (3.5-5.1); Sodium 142 mmol/L (136-145); Total Protein,Serum 7.8 g/dl (6.3-8.2)
[2023-01-21 16:00] LABS: Direct LDL Cholesterol 35.74 mg/dL (100-129)
[2023-01-21 16:01] LABS: Triglycerides 960 mg/dl (30-150)
[2023-01-21 16:06] LABS: Free T4 (Free Thyroxine) 0.87 ng/dl (0.78-2.19)
[2023-01-21 16:19] LABS: Thyroid Stimulating Hormone 0.95 uIU/mL (0.465-4.68)
[2023-01-22 10:01] LABS: Amylase 83 U/L (30-110); Lipase 120 U/L (23-300)
[2023-01-22 10:07] LABS: Hemoglobin A1C 4.9 % (4.0-6.0)
== END ==
PROVIDERS: Physician Assistant; PCP Nurse Practitioner Family; Visit Provider Internal Medicine
DX: I10 Essential (primary) hypertension (principal); K21.9 Gastro-esophageal reflux disease without esophagitis; R94.31 Abnormal electrocardiogram [ECG] [EKG]; E78.1 Pure hyperglyceridemia; Z79.899 Other long term (current) drug therapy
CPT/HCPCS: 36415; 80048; 80061; 80076; 82150; 83036; 83690; 83735; 84439; 84443; 85025

== ENCOUNTER → 2023-04-07 16:27 | Outpatient (CLI) | payer BC, SELFPAY ==
[2023-04-07 16:03] LABS: Basophils % 0.5 % (0.1-2.0); Eosinophils # 0.1 K/mm3 (0.0-0.4); Hematocrit 43.5 % (42.0-52.0); Hemoglobin 15.8 g/dL (14.1-18.0); Lymphocytes # 2.4 K/mm3 (0.7-4.5); Lymphocytes % 41.1 % (10-50); Mean Corpuscular HGB Conc 36.4 g/dL (31.8-35.4); Mean Corpuscular Hemoglobin 33.8 pg (27.0-31.2); Mean Corpuscular Volume 92.8 fl (80-94); Mean Platelet Volume 8.8 fl (7.4-10.4); Monocytes # 0.4 K/mm3 (0.1-1.0); Neutrophils % 51.5 % (37.0-80.0); Platelet Count 237 K/mm3 (142-424); Red Blood Count 4.69 M/mm3 (4.60-6.20); Red Cell Distribution Width 13.2 % (11.5-17.5); White Blood Count 5.9 K/mm3 (4.8-10.8)
[2023-04-07 16:30] LABS: Alanine Aminotransferase 41 U/L (12-78); Albumin Level 4.6 g/dl (3.5-5.0); Albumin/Globulin Ratio 1.6 (1.1-1.8); Alkaline Phosphatase 57 U/L (38-126); Anion Gap 15.1 mEq/L (5-15); Aspartate Amino Transferase 41 U/L (17-59); Bilirubin,Total 0.6 mg/dl (0.2-1.3); Blood Urea Nitrogen 13 mg/dl (9-20); Calcium 9.8 mg/dl (8.4-10.2); Carbon Dioxide 25 mmol/L (22.0-30.0); Chloride 102 mmol/L (98-107); Estimated Glomerular Filt Rate 99 ml/min (>60); GFR (African American) 120 ML/MIN (>60); Globulin 2.9 g/dL (1.3-3.2); Glucose 84 mg/dl (74-100); Potassium 4.1 mmoL/L (3.5-5.1); Sodium 138 mmol/L (136-145); Total Protein,Serum 7.5 g/dl (6.3-8.2)
[2023-04-07 16:37] LABS: C-Reactive Protein 0.7 mg/L (0-4)
[2023-04-07 17:01] LABS: Thyroid Stimulating Hormone 1.86 uIU/mL (0.465-4.68)
[2023-04-07 17:05] LABS: Ferritin 252 ng/ml (17.9-464)
[2023-04-07 17:21] LABS: Vitamin B12 735 pg/mL (239-931)
== END ==
PROVIDERS: PCP Nurse Practitioner Family; Visit Provider Nurse Practitioner Family
DX: R42 Dizziness and giddiness (principal); M79.10 Myalgia, unspecified site; R20.0 Anesthesia of skin; R20.2 Paresthesia of skin
CPT/HCPCS: 80053; 82607; 82728; 84443; 85025; 86140

== ENCOUNTER → 2023-04-15 07:04 | Outpatient (CLI) | payer BC, SELFPAY ==
--- NOTE | 2023-04-15 07:08 | CT_ITS ---
FINAL REPORT TECHNIQUE: Axial CT images were performed through the head. Coronal reformatted images were submitted. This study was performed with techniques to keep radiation doses as low as reasonably achievable (ALARA). Individualized dose reduction techniques using automated exposure control or adjustment of mA and/or kV according to the patient's size were employed. CLINICAL HISTORY: left sided headache, dizziness COMPARISON: 03/28/2021 FINDINGS: The ventricles are normal in size. There is no evidence of hemorrhage. There is no mass or edema identified. There is no abnormal extra-axial fluid seen. There is mucoperiosteal thickening in the inferior portions of both maxillary sinuses. IMPRESSION: No acute intracranial process. Chronic maxillary sinusitis. Reviewed, Interpreted and Dictated by Josue Toth MD Transcribed by Suzanne Ibarra Authenticated and [facility]
== END ==
PROVIDERS: PCP Nurse Practitioner Family; Visit Provider Nurse Practitioner Family
DX: R51.9 Headache, unspecified (principal); R42 Dizziness and giddiness; R20.0 Anesthesia of skin; R20.2 Paresthesia of skin
CPT/HCPCS: 70450

== ENCOUNTER → 2023-05-15 12:46 | Outpatient (CLI) | payer BC, SELFPAY ==
[2023-05-15 15:09] LABS: Chol/HDL Ratio 7.7 (1-3.5); Cholesterol 231 mg/dl (140-200); HDL Cholesterol 30 mg/dl (40-60); Triglycerides 473 mg/dl (30-150)
[2023-05-15 15:20] LABS: Direct LDL Cholesterol 62.11 mg/dL (100-129)
== END ==
PROVIDERS: PCP Nurse Practitioner Family; Visit Provider Nurse Practitioner Family
DX: E78.1 Pure hyperglyceridemia (principal)
CPT/HCPCS: 80061

== ENCOUNTER 2023-07-13 13:28 | Outpatient (CLI) | payer BC, SELFPAY ==
[2023-07-13 14:56] LABS: Alanine Aminotransferase 22 U/L (12-78); Albumin/Globulin Ratio 1.7 (1.1-1.8); Alkaline Phosphatase 66 U/L (38-126); Anion Gap 12.4 mEq/L (5-15); Aspartate Amino Transferase 26 U/L (17-59); Bilirubin,Total 0.6 mg/dl (0.2-1.3); Blood Urea Nitrogen 13 mg/dl (9-20); Carbon Dioxide 26 mmol/L (22.0-30.0); Chloride 104 mmol/L (98-107); Chol/HDL Ratio 9.1 (1-3.5); Cholesterol 256 mg/dl (140-200); Estimated Glomerular Filt Rate 132 ml/min (>60); GFR (African American) 160 ML/MIN (>60); Glucose 88 mg/dl (74-100); HDL Cholesterol 28 mg/dl (40-60); Potassium 4.4 mmoL/L (3.5-5.1); Sodium 138 mmol/L (136-145)
[2023-07-13 15:04] LABS: Triglycerides 599 mg/dl (30-150)
[2023-07-13 15:06] LABS: Direct LDL Cholesterol 73.36 mg/dL (100-129)
== END 2023-07-13 23:59 ==
LOC: LAB.DROPOF 13:28
PROVIDERS: PCP Nurse Practitioner Family; Visit Provider Nurse Practitioner Family
DX: E78.1 Pure hyperglyceridemia (principal); I10 Essential (primary) hypertension; J02.9 Acute pharyngitis, unspecified; J35.1 Hypertrophy of tonsils
CPT/HCPCS: 80053; 80061; 87070

== ENCOUNTER 2023-10-02 10:04 | Outpatient (CLI) | payer BC, SELFPAY ==
[2023-10-02 11:36] LABS: Basophils % 0.6 % (0.1-2.0); Eosinophils % 0.6 % (0.1-12.0); Hematocrit 44.6 % (42.0-52.0); Hemoglobin 15.4 g/dL (14.1-18.0); Lymphocytes # 1.9 K/mm3 (0.7-4.5); Lymphocytes % 33.6 % (10-50); Mean Corpuscular HGB Conc 34.6 g/dL (31.8-35.4); Mean Corpuscular Hemoglobin 32.8 pg (27.0-31.2); Mean Corpuscular Volume 94.9 fl (80-94); Monocytes # 0.3 K/mm3 (0.1-1.0); Monocytes % 5.4 % (1.7-9.3); Neutrophils # 3.4 K/mm3 (1.8-7.8); Neutrophils % 59.8 % (37.0-80.0); Platelet Count 254 K/mm3 (142-424); Red Cell Distribution Width 13.6 % (11.5-17.5); White Blood Count 5.6 K/mm3 (4.8-10.8)
[2023-10-02 12:27] LABS: Alanine Aminotransferase 26 U/L (12-78); Albumin Level 4.7 g/dl (3.5-5.0); Albumin/Globulin Ratio 1.7 (1.1-1.8); Alkaline Phosphatase 58 U/L (38-126); Anion Gap 12.5 mEq/L (5-15); Aspartate Amino Transferase 27 U/L (17-59); Bilirubin,Total 0.7 mg/dl (0.2-1.3); Blood Urea Nitrogen 14 mg/dl (9-20); Calcium 9.8 mg/dl (8.4-10.2); Carbon Dioxide 26 mmol/L (22.0-30.0); Chloride 104 mmol/L (98-107); Estimated Glomerular Filt Rate 98 ml/min (>60); GFR (African American) 119 ML/MIN (>60); Globulin 2.7 g/dL (1.3-3.2); Glucose 86 mg/dl (74-100); Potassium 4.5 mmoL/L (3.5-5.1); Sodium 138 mmol/L (136-145); Total Protein,Serum 7.4 g/dl (6.3-8.2)
[2023-10-02 12:43] LABS: C-Reactive Protein 0.5 mg/L (0-4)
[2023-10-02 12:58] LABS: Thyroid Stimulating Hormone 3.41 uIU/mL (0.465-4.68)
[2023-10-06 09:22] LABS: Magnesium,RBC 5.5 mg/dL (3.7-7.0)
== END 2023-10-02 23:59 | disposition home or self-care (01) ==
LOC: LAB.DROPOF 10:05
PROVIDERS: PCP Nurse Practitioner Family; Visit Provider Nurse Practitioner Family
DX: R55 Syncope and collapse (principal); R42 Dizziness and giddiness
CPT/HCPCS: 80053; 83735; 84443; 85025; 86140; 93225

== ENCOUNTER 2023-10-09 10:25 | Outpatient (CLI) | payer BC, SELFPAY ==
--- NOTE | 2023-10-09 10:29 | XR_ITS ---
FINAL REPORT CLINICAL HISTORY: cervicalgia COMPARISON: None FINDINGS: AP, lateral and odontoid views of the cervical spine were obtained. There is no prior exam for comparison. There is no acute fracture or malalignment. Vertebral body height is preserved. The precervical soft tissues are normal IMPRESSION: Unremarkable 3 view cervical spine series. Reviewed, Interpreted and Dictated by Gary Taylor III, MD Transcribed by Susie Bronson Authenticated and . [facility]
== END 2023-10-09 23:59 | disposition home or self-care (01) ==
LOC: RAD 10:27
PROVIDERS: PCP Nurse Practitioner Family; Visit Provider Nurse Practitioner Family
DX: M54.2 Cervicalgia (principal)
CPT/HCPCS: 72040

== ENCOUNTER 2023-10-16 14:19 | Outpatient (CLI) | payer BC, SELFPAY ==
[2023-10-16 15:01] LABS: Chloride 103 mmol/L (98-107)
[2023-10-16 15:02] LABS: Potassium 4.3 mmoL/L (3.5-5.1); Sodium 138 mmol/L (136-145)
[2023-10-16 15:04] LABS: Alanine Aminotransferase 40 U/L (12-78); Alkaline Phosphatase 49 U/L (38-126); Anion Gap 13.3 mEq/L (5-15); Aspartate Amino Transferase 34 U/L (17-59); Bilirubin,Total 0.5 mg/dl (0.2-1.3); Blood Urea Nitrogen 15 mg/dl (9-20); Carbon Dioxide 26 mmol/L (22.0-30.0); Estimated Glomerular Filt Rate 87 ml/min (>60); GFR (African American) 105 ML/MIN (>60)
[2023-10-16 15:05] LABS: Albumin Level 4.6 g/dl (3.5-5.0); Albumin/Globulin Ratio 1.6 (1.1-1.8); Calcium 9.7 mg/dl (8.4-10.2); Cholesterol 197 mg/dl (140-200); Globulin 2.9 g/dL (1.3-3.2); Glucose 81 mg/dl (74-100); Total Protein,Serum 7.5 g/dl (6.3-8.2); Triglycerides 191 mg/dl (30-150); VLDL Cholesterol 38 mg/dL (0-40)
[2023-10-16 15:16] LABS: Direct LDL Cholesterol 95.78 mg/dL (100-129)
[2023-10-16 15:52] LABS: Chol/HDL Ratio 3.3 (1-3.5); HDL Cholesterol 59 mg/dl (40-60)
== END 2023-10-16 23:59 | disposition home or self-care (01) ==
LOC: LAB.DROPOF 14:20
PROVIDERS: PCP Nurse Practitioner Family; Visit Provider Nurse Practitioner Family
DX: E78.1 Pure hyperglyceridemia (principal)
CPT/HCPCS: 80053; 80061

== ENCOUNTER 2023-10-20 13:04 | Outpatient (CLI) | payer BC, SELFPAY ==
--- NOTE | 2023-10-20 13:09 | MR_ITS ---
FINAL REPORT CLINICAL HISTORY: syncope and dizziness FINDINGS: Multi planar MR imaging was obtained through the brain without contrast. The midline structures appear intact. There is no evidence of Chiari malformation. On T2 and flair axial images the brain parenchyma is homogeneous. On diffusion-weighted images there is no evidence of restricted diffusion. There is mild mucoperiosteal thickening in both maxillary sinuses consistent with chronic sinusitis. The seventh and eighth nerve root complexes are intact. IMPRESSION: No acute intracranial abnormality. Chronic maxillary sinusitis. Reviewed, Interpreted and Dictated by Josue Toth MD Transcribed by Suzanne Ibarra Authenticated and [facility] [place] [place]
== END 2023-10-20 23:59 | disposition home or self-care (01) ==
LOC: RAD 13:05
PROVIDERS: PCP Nurse Practitioner Family; Visit Provider Nurse Practitioner Family
DX: R55 Syncope and collapse (principal); R42 Dizziness and giddiness
CPT/HCPCS: 70551

== ENCOUNTER → 2024-01-06 07:28 | Day surgery (SDC) | payer BC, SELFPAY ==
[2024-01-06 07:49] VITALS: BMI 28.4
--- NOTE | 2024-01-06 10:02 | EXP.TILT ---
Findings:: PROCEDURE: Tilt Table Test REQUESTING PROVIDER: Bette Holguin MD INDICATION: Sporadic syncopal episodes BETA BLOCKERS: Bisoprolol was held for 48 hours prior to testing PRE-TEST VITAL SIGNS (supine position): BP 106/60, HR 67 and sinus rhythm, O2sats 98% PROCEDURE SUMMARY: Patient was prepped per protocol, IV started, connected to heart, blood pressure and oxygen saturation monitors and safety straps applied. He was then tilted upright at 70 degrees for a total of 7 minutes. After being upright for less than 5 minutes he started experiencing dizziness, diaphoresis, pallor, extreme thirst and anxiousness and then very near syncopal. After 5 minutes upright his blood pressure had dropped to 56/29 and heart rate to 40 bpm (regular rhythm that appears to sinus on rhythm strip). His O2 sats had also dropped to 85%. Due to his near syncope and dramatic drop in BP and HR, he was returned to the supine position. This resulted in rapid resolution of his symptoms and improvement in his BP (100/65), HR (51 bpm) and O2sats (99%). After 5 additional minutes supine, his BP was 107/74, HR 58 bpm, and O2sats 98%. He was moved to a seated position without any drop in BP or HR and remained asymptomatic. CONCLUSIONS: Abnormal tilt table test. Overall, the results seem to be most consistent with a mixed neurocardiogenic (vasovagal) syncope/near-syncope. However, the rapid onset of symptoms and drop in blood pressure after being tilted upright is inconsistent with a typical vasovagal syncope.
== END ==
PROVIDERS: PCP Nurse Practitioner Family; Visit Provider Internal Medicine
DX: R55 Syncope and collapse (principal); Z79.899 Other long term (current) drug therapy; R42 Dizziness and giddiness
CPT/HCPCS: 93270; 93660

== ENCOUNTER 2024-01-15 11:14 | Outpatient (CLI) | payer BC, SELFPAY ==
--- NOTE | 2024-01-15 | CA_ITS ---
APPROVED REPORT Exam: Exercise Treadmill Technologist: Betsey Castillo, Ht: 5 ft 8 in Wt: 184 lbs BSA: 1.97 m2 HR: 70 bpm BP: 132/83 mmHg Rhythm: NSR, cannot R/O old inferior AL Medical History Medications: Xanax,,,,, Albuterol,,,,, Montelukast,,,,, Protonix,,,,, Magnesium,,,,, FeNOfibrate,,,,, BisOPROLOL Fumarate,,,,, Singulair,,,,, PEPcid,,,,, Cardiac Risk Factors: Hyperlipidemia Stress Test Details Test: Jake HR Resting HR: 84 bpm Max Heart Rate (APMHR): 189 bpm Max HR Achieved: 172 bpm Target HR (85% APMHR): 161 bpm % of APMHR: 91 Recovery HR: 147 bpm HR response to stress: Normal HR response to stress BP Resting BP: 135.0/87.0 mmHg Max BP: 165.0/76.0 mmHg Recovery BP: 165.0/76.0 mmHg BP response to stress: Normal blood pressure response to stress. ECG Resting ECG: NSR, cannot R/O old inferior AL Stress EC.[address] depression Arrhythmia: None Clinical Exercise duration: 11:16 min Highest Stage Achieved: Exercise capacity: 12.8 METs Overall Exercise Capacity for Age: Average Stress ECG Conclusion During jake protocol pt exercised total of 9:16 minutes. No CP noted. No arrhythmias noted. ST changes: 0.[address] depression Conclusion: Average exercise capacty. Normal GXT. Myoview images reported separately. Test Summary REST . . . . . . . Sitting REST . . . . . . . Sitting REST . . . . . . . Standing REST . . . . . . . Standing REST 05:06 0.0 0.0 84 . 135/ 87 . . Stage 1 01:00 10.0 1.7 96 . . . . Stage 1 02:00 10.0 1.7 89 . . . . Stage 1 03:00 10.0 1.7 100 . 142/ 76 . . Stage 2 01:00 12.0 2.5 114 . . . . Stage 2 02:00 12.0 2.5 118 . . . . Stage 2 03:00 12.0 2.5 123 . 148/ 76 . . Stage 3 01:00 14.0 3.4 133 . . . . Stage 3 02:00 14.0 3.4 140 . . . . Stage 3 03:00 14.0 3.4 146 . 148/ 72 . . Stage 4 01:00 16.0 4.2 164 . . . . Stage 4 02:00 16.0 4.2 170 . . . . Stage 4 02:16 16.0 4.2 171 . . . Stop exercise at 11:16 RECOVERY 01:00 0.0 0.0 153 . . . . RECOVERY 02:00 0.0 0.0 129 . 165/ 76 . . RECOVERY 03:00 0.0 0.0 118 . 160/ 75 . . RECOVERY 04:00 0.0 0.0 112 . 146/ 72 . . RECOVERY 05:00 0.0 0.0 112 . 135/ 69 . . RECOVERY 05:19 0.0 0.0 111 . 135/ 69 . . Electronically signed by : Rakel Rubio MD 01/18/2024 06:21:24
--- NOTE | 2024-01-15 11:14 | NM_ITS ---
APPROVED REPORT Exam: Nuclear Stress Test Indication: SOB, Syncope, HTN Patient Location: Outpatient Stress Tech: Betsey DAMON Tech:Kaitlin Fortune ESTELITA RT(R)(N) Ht: 5 ft 7 in Wt: 184 lbs HR: 84 bpm BP: 135/87 mmHg BSA: 1.95 m2 Rhythm: NSR TID: 1.06 BMI: 28.8 History: SOB, Syncope, HTN Procedure: Patient exercised on Sixto protocol 11:16 minutes and sec, resting heart rate 84 bpm, resting blood pressure 135/87 mmHg, with exercise maximum heart rate achived was 172 bpm which is 91 % of the maximum predicted heart rate and blood pressure was 165/76 mmHg. Test was stopped due to SOB. Patient denied any complaint of chest pain. Patient has average exercise capacity, achieved 12.8 METs of workload on treadmill, the blood pressure response to exercise was normal. Cardiac Stress and Resting SPECT Images: Cardiac Stress and Resting SPECT images were obtained using technetium 99m Myoview 31.9 mCi stress and 10.64 mCi at rest. Technically difficult study due to significant soft tissue overlap with the cardiac borders. This may affect the diagnostic interpretation of the study findings. Resting and stress imaging in supine positions demonstrate a medum-sized, mild, fixed perfusion defect in the inferior LV wall. This is no longer visualized with prone stress imaging. Findings are suggestive of diaphragmatic attenuation. Gated imaging demonstrates normal global and regional LV systolic function. LVEF is calculated at 55%. Conclusion: Diaphragmatic attenuation is present. No evidence of fixed or reversible perfusion defects. Gated imaging demonstrates normal global and regional LV systolic function. LVEF is calculated at 55%. Electronically signed by : Rakel Rubio MD 01/18/2024 06:24:46
--- NOTE | 2024-01-15 12:27 | CA_ITS ---
APPROVED REPORT EXAM: Comprehensive 2D, Doppler, and color-flow Echocardiogram Rocket Engine Mechanic: Sadaf Pinto RVT Ht: 5 ft 8 in Wt: 184lbs BSA: 1.97 BP: 111/64 mmHg Indications: SYNCOPE,HTN,HLD,MILLER M-Mode Dimensions RVDd 2.92 cm (0.9-2.6) LA Diam 3.56 cm (1.9-4.0) LVDd 4.82 cm (3.5-5.7) LVDs 3.42 cm (3.5-5.7) IVSd 0.76 cm (0.6-1.1) PWd 0.61 cm (0.6-1.1) EF (Teich) 55.70% FS 29.00% EDV (Teich) 108.60 mL TAPSE 2.39 (<1.7) ESV (Teich) 48.10 mL LV Diastology E Decel Time 240 (160-240 msec) E/A Ratio 1.2 Aortic Valve CHRIS Index 1.47 cm2/m2 AoV Peak Osei. 136.0 (50-130 cm/s) AO Peak GR. 7.40 mmHg AO Mean GR. 3.90 (<5 mmHg) AO VTI 27.5 (18-25 cm) CHRIS (VTI) 2.97 (2.5-4.5 cm2) Mitral Valve MV E Max Osei. 75.0 (40-130 cm/s) MV A Velocity 64.0 (40-130 cm/s) E/A Ratio 1.17 MV PHT 70.0 ms Pulmonary Valve PV Peak Velocity 72.0 (50-150 cm/s) Tricuspid Valve TR P. Velocity 254.00 cm/s RAP Estimate 10.00 mmHg RVSP 35.70 mmHg Left Ventricle The left ventricle is normal size. The left ventricular systolic function is normal. The left ventricular ejection fraction is within the normal range. There is normal left ventricular wall thickness. There is normal LV segmental wall motion. The left ventricular diastolic function is normal. LVEF is 55%. Right Ventricle Right ventricle is mild to moderately dilated. Right ventricle is mildly hypokinetic. Atria The left atrium size is normal. Right atrium is mildly dilated. The interatrial septum is not well visualized. Aortic Valve The aortic valve opens well. There is no aortic valvular stenosis. No aortic regurgitation is present. Mitral Valve The mitral valve is normal in structure. No evidence of mitral valve stenosis. There is no mitral valve regurgitation noted. Tricuspid Valve The tricuspid valve leaflets are thin and pliable. Mild tricuspid regurgitation. RVSP is 20-25 mmHg. Pulmonic Valve The pulmonary valve is normal in structure. Trace pulmonic regurgitation. Great Vessels The aortic root is normal in size. The ascending aorta is normal in size. The IVC is not well visualized. Pericardium There is no pericardial effusion. Other Information Study Quality: Fair Conclusion Normal LV systolic function. Mild to moderate RV dilation with mild reduction in RV function. Mild TR. In the setting of young age, syncope, and presence of RV dysfunction on TTE, further evaluation is recommended, including cardiac MRI ([facility] protocol) + limited TTE with agitated saline (bubble study) + PE evaluation + pulmonary work-up. Electronically signed by : Rakel Rubio MD 01/18/2024 06:33:24
[2024-01-15] MEDS: SODIUM CHLORIDE 0.9% 10ML SYR (RAD ONLY) 10 ML IV ×2 (14:23)
[2024-01-15] MEDS: ISOTOPE MYOVIEW (PER STUDY) 1 DOSE IV (14:23)
== END 2024-01-15 23:59 | disposition home or self-care (01) ==
LOC: RAD 11:14
PROVIDERS: PCP Nurse Practitioner Family; Visit Provider Internal Medicine
DX: R55 Syncope and collapse (principal); R94.31 Abnormal electrocardiogram [ECG] [EKG]; R06.00 Dyspnea, unspecified
CPT/HCPCS: 78452; 93017; 93018; 93306; A9502

== ENCOUNTER 2024-03-07 08:49 | Outpatient (CLI) | payer BC, SELFPAY ==
--- NOTE | 2024-03-07 08:55 | CA_ITS ---
APPROVED REPORT EXAM: Limited 2D Echocardiogram Health Safety Manager: Sadaf Pinto RVT Ht: 5 ft 8 in Wt: 188lbs BSA: 1.99 BP: 119/73 mmHg Indications: BUBBLE STUDY,RV DILATATION SEEN ON TTE,ABN EKG,SOA Other Information Study Quality: Fair Conclusion This is a limited TTE to evaluate for interatrial shunt. Limited windows were obtained. Administration of agitated saline at rest and with Valsalva demonstrates no evidence of interatrial shunt. There is no color Doppler evidence of interatrial shunt. Of note, on apical four-chamber view, the RV on this TTE appears normal in size and function. Electronically signed by : Rakel Rubio MD 03/07/2024 12:39:19
--- NOTE | 2024-03-07 09:22 | MR_ITS ---
APPROVED REPORT Maintenance Manager: CLINICAL INDICATION RV dilation on TTE TECHNIQUE Image Acquisition: Cardiac magnetic resonance (CMR) was performed on Siemens Espree MRI 1.5T scanner. Software platform sequences were performed using the Siemens SpectrumDNA MR B19 platform. A set of three-plane, low-resolution, large [id number] localizers were initially acquired. Then axial, coronal, sagittal TrueFISP, as well as axial HASTE images, were obtained. These were followed by gated TrueFISP breathold cinematic sequences obtained in the short axis with 8 mm slices and 2 mm gaps, 2-chamber (vertical long axis), 3-chamber, 4-chamber (horizontal long axis). A bolus of contrast was injected intravenously with first-pass sequences obtained in the short axis and four-chamber planes. After approximately 10 minutes, a TI test technician sequence was performed to determine the optimal TI time. Using the optimized TI time, delayed contrast enhancement segmented inversion???recovery TurboFLASH sequences were obtained in the short axis, 2-chamber, 3-chamber, and 4-chamber projections. 2D-velocity phase mapping was performed. Functional parameters were calculated by offline analysis on an independent workstation ([employer] Imaging Platform, CVISounder). Contrast: ProHance??? (Gadoteridol) FINDINGS MORPHOLOGY AND FUNCTION Left ventricle: The left ventricle is normal in size. The indexed left ventricular end-diastolic volume (LVEDVi) is 90 ml/m2 (reference range 57-105 ml/m2 in males, 56-96 ml/m2 in females). Normal left ventricular systolic function is present. There is normal left ventricular wall thickness. There are no regional wall motion abnormalities noted. LVEF is calculated at 68.5% (reference range 57-77%). Right ventricle: The right ventricle is normal in size. The indexed right ventricular end-diastolic volume (RVEDVi) is 93 ml/m2 (reference range 61-121 ml/m2 in males, 48-112 ml/m2 in females). Normal right ventricular systolic function is present. RVEF is calculated at 59.0% (reference range 52-72% in males, 51-71% in females). Atria: The left atrium is normal in size. The maximum indexed left atrial volume is 38 ml/m2 (reference range 26-52 ml/m2 in males, 27-53 ml/m2 in females). The right atrium is normal in size. The maximum indexed right atrial volume is 47 ml/m2 (reference range 18-90 ml/m2). Aorta: The diameter of the aortic annulus is normal, measuring 29 mm (coronal view reference range 21-30 mm in males, 19-27 mm in females). The diameter of the aortic sinus is normal, measuring 34 mm (coronal view reference range 25-42 mm in males, 24-36 mm in females). The diameter of the sinotubular junction is normal, measuring 26 mm (coronal view reference range 18-32 mm in males, 18-28 mm in females). The diameters of the ascending and descending thoracic aorta are normal. Main pulmonary artery: The main pulmonary artery diameter is normal. Pericardium: The pericardial thickness is normal. The pericardial thickness measures 2.7 mm (normal < 4.0 mm). There is no pericardial effusion. VALVES The valvular morphologies in the visualized sequences appear normal. There is no significant valvular stenosis or regurgitation of the mitral, aortic, tricuspid, or pulmonic valve noted visually. Systolic anterior motion of the mitral valve is not visualized. Ratio of pulmonary to systemic flow, Qp:Qs ratio = 0.8 (normal < or = 1.2, hemodynamically significant shunt > 1.5), demonstrating no evidence of hemodynamically significant shunt. TISSUE CHARACTERIZATION Resting Perfusion: Normal myocardial blood flow at rest. No evidence of resting hypoperfusion. Myocardial Fibrosis and/or edema: Normal gadolinium kinetics are present. No evidence of late gadolinium enhancement is noted, consistent with absence of myocardial scarring, infarction, or necrosis. T2-weighted imaging demonstrates no evidence of myocardial edema or inflammation. OTHER No other significant findings are noted. However, this exam is focused on the cardiac structure and function. IMPRESSION Normal LV size with normal LV systolic function. LVEDVi= 90 ml/m2 and LVEF= 68.5%. Normal RV size with normal RV systolic function. RVEDVi= 93 ml/m2 and RVEF= 59.0%. No atrial enlargement. No CMR evidence of myocardial scarring, infarction, or necrosis. No evidence of myocardial edema or inflammation. Perfusion analysis demonstrates normal blood flow at rest with no evidence of resting hypoperfusion. Ratio of pulmonary to systemic flow, Qp:Qs ratio = 0.8 (normal < or = 1.2, hemodynamically significant shunt > 1.5), demonstrating no evidence of hemodynamically significant shunt. Overall, this CMR demonstrates normal biventricular size and systolic function. No evidence of RV dilation. Normal Qp:Qs ratio, suggestive of absence of significant interatrial shunt.. COMPARISON None CRITICAL RESULT None COMMUNICATION Per this written report The findings of this cardiac MR were reviewed, reported, and signed by Mukesh Rubio MD (Java Front End Web Developer). Conclusion Electronically signed by : Rakel Rubio MD 03/14/2024 15:39:18
[2024-03-07] MEDS: GADOTERIDOL INJ 20ML SYRINGE 19 ML IV (11:57)
[2024-03-07] MEDS: SODIUM CHLORIDE 0.9% 10ML SYR (RAD ONLY) 10 ML IV (11:57)
[2024-03-07] MEDS: 0.9 % SODIUM CHLORIDE 50 ML VIAL 20 ML IV (11:57)
== END 2024-03-07 23:59 | disposition home or self-care (01) ==
LOC: RT 08:50
PROVIDERS: PCP Nurse Practitioner Family; Visit Provider Internal Medicine
DX: I51.7 Cardiomegaly (principal); R94.31 Abnormal electrocardiogram [ECG] [EKG]; R93.1 Abnormal findings on diagnostic imaging of heart and coronary circulation
CPT/HCPCS: 75561; 93308; A9576

== ENCOUNTER 2024-04-18 10:28 | Outpatient (CLI) | payer BC, SELFPAY | END 2024-04-18 23:59 | disposition home or self-care (01) | LOC: LAB.DROPOF 04-21 10:29 | PROVIDERS: PCP Nurse Practitioner Family; Visit Provider Nurse Practitioner Family | DX: J02.9 Acute pharyngitis, unspecified (principal) | CPT/HCPCS: 87070 ==

== ENCOUNTER 2024-11-01 08:44 | Emergency (ER) | payer OTHER, SELFPAY ==
[2024-11-01 08:52] VITALS: BP 148/93; PULSE 90; RESP 16; TEMP 36.6; O2SAT 99; BMI 29.6
[2024-11-01 09:00] VITALS: BP 126/89; PULSE 84; RESP 18; O2SAT 99
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
[2024-11-01] MEDS: ACETAMINOPHEN 500MG TAB 1000 MG PO (09:10)
[2024-11-01] MEDS: METHOCARBAMOL 500MG TABLET 500 MG PO (09:10)
[2024-11-01] MEDS: IBUPROFEN 400 MG TABLET 800 MG PO (09:10)
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
[2024-11-01 09:49] VITALS: BP 115/77; PULSE 74; O2SAT 97
[2024-11-01 10:00] VITALS: BP 119/77; PULSE 76; RESP 18; O2SAT 97
[2024-11-01 10:48] VITALS: BP 117/71; PULSE 67; RESP 14; TEMP 36.6; O2SAT 97
== END 2024-11-01 10:50 | disposition home or self-care (01) ==
PROVIDERS: Emergency Provider Emergency Medicine; PCP Nurse Practitioner Family
DX: S39.012A Strain of muscle, fascia and tendon of lower back, initial encounter (principal); M79.605 Pain in left leg; V44.5XXA Car driver injured in collision with heavy transport vehicle or bus in traffic accident, initial encounter; F41.0 Panic disorder [episodic paroxysmal anxiety]; G47.33 Obstructive sleep apnea (adult) (pediatric); E78.1 Pure hyperglyceridemia; I10 Essential (primary) hypertension
CPT/HCPCS: 72125; 72131; 73502; 73552; 99285

== ENCOUNTER 2024-11-07 15:45 | Outpatient (CLI) | payer OTHER, SELFPAY ==
--- NOTE | 2024-11-07 15:48 | XR_ITS ---
FINAL REPORT CLINICAL HISTORY: Pain COMPARISON: None FINDINGS: SACRUM COCCYX 3 views demonstrate no acute fracture or dislocation. The sacral arches are intact. The sacroiliac joints are intact. The hip joint spaces are intact. No soft tissue abnormality is seen. IMPRESSION: No acute process. Reviewed, Interpreted and Dictated by Josue Toth MD Transcribed by Haylee Kumar Authenticated and [facility]
--- OUTSIDE RECORDS SUMMARY | 2024-11-07 15:59 | XMS_ITS | Clinical Summary ---
Author Organization [facility] Address [address] [place] [address] Care Team Providers Care Trial Consultant Name Role Phone BowlesJuana al Shailesh SANTIAGO Primary Care Provider [phone] Allergies Active Allergy Reactions Criticality Noted Date Comments Amoxicillin-Pot Clavulanate Other - plea se document in the comment field Low 03/17/2022 Medications Multiple Vitamin (multivitamin) tablet Take 1 tablet by mouth 1 (one) time each day. Active omega-3 (Fish Oil) 1000 MG capsule Take 1,000 mg by mouth 2 (two) times a day with meals. Active cholecalciferol 10 MCG (400 UNIT) tablet Take 1 tablet (400 Units) by mouth 1 (one) time each day. Active albuterol 108 (90 Base) MCG/ACT inhaler INHALE 2 PUFFS BY MOUTH EVERY 6 HOURS NEEDED FOR SHORTNESS OF BREATH 2 Active cefdinir (Omnicef) 300 MG capsule TAKE 1 CAPSULE BY MOUTH TWICE DAILY FOR 7 DAYS 2 Active Active Problems Problem Noted Date Diagnosed Date HORTENCIA (obstructive sleep apnea) 04/10/2022 Social History Tobacco Use Types Packs/Day Years Used Date Smoking Tobacco: Never Smokeless Tobacco: Never Tobacco Cessation:Counseling Given: Not Answered Alcohol Use Standard Drinks/Week Comments Not Currently 0 (1 standard drink = 0.6 oz pur e alcohol) PHQ-2 Answer Date Recorded Patient Health Questionnaire-2 Score 0 04/02/2022 Sex and Gender Information Value Date Recorded Sex Assigned at Not on file Legal Sex Male 3:34 PM EDT Gender Identity Not on file Sexual Orientation Not on file Last Filed Vital Signs Vital Sign Reading Time Taken Comments Blood Pressure 131/81 09/27/2023 3:26 PM EDT Pulse 67 09/27/2023 3:26 PM EDT Temperature 36.7 C (98 F) 09/27/2023 3:26 PM EDT Respiratory Rate 18 09/27/2023 3:26 PM EDT Oxygen Saturation 100% 09/27/2023 3:26 PM EDT Inhaled Oxygen Concentration - - Weight 85.7 kg (189 lb) 04/28/2023 3:55 PM EST Height 172.7 cm (5' 8 ) 04/28/2023 3:55 PM EST Body Mass Index 28.74 04/28/2023 3:55 PM EST Plan of Treatment Health Maintenance Due Date Last Done Comments [facility]-/Child/Adol SDOH Screenings 1992 [facility]-Varicella Vaccines (1 of 2 - 13+ 2-dose series) 2005 HPV Vaccines (1 - Male 3-dose series) 08/20/2007 [facility]- SDOH Screenings 2010 [facility]-Adult SDOH Screenings 2010 [facility]-DTaP,Tdap,and Td Vaccines (1 - Tdap) 08/20/2011 [facility]-Hepatitis B Vaccines (1 of 3 - 19+ 3-dose series) 08/20/2011 [facility]-Depression Screening 04/02/2023 04/02/2022 [id number]-38 Vaccine (1 - season) 2024 [facility]-Influenza Vaccine (Season Ended) 2025 04/03/2020 [facility]-Zoster Vaccines (1 of 2) 2042 [facility]-Obesity Intervention Completed 023, 04/22/2022, 04/02/2022, Additional history exists [facility]-HIV Screening Completed 09/27/2023 [facility]-Hepatitis C Screening Completed 09/27/2023 [facility]-HIB Vaccines Aged Out No longer e ligible based on patient's age to complete this topic [facility]-Hepatitis A Vaccines Aged Out No longer eligible based on patient's age to complete this topic [facility]-IPV Vaccines Aged Out No longer e ligible based on patient's age to complete this topic [facility]-Pneumococcal Vaccine: Pediatrics (0 to 5 Years) and At-Risk Patients (6 to 49 Years) Aged Out No longer eligible based on patient's age to complete this topic [facility]-Rotavirus Vaccines Aged Out No lo nger eligible based on patient's age to complete this topic Procedures Procedure Name Priority Date/Time Associated Diagnosis Comments HEPATITIS C ANTIBODY - ED W/REFLEX TO HCV QUANT PCR STAT 09/27/2023 2:18 PM EDT ED HIV 1/2 ANTIBODY/ANTIGEN SCREEN WITH REFLEX TO HIV I/II DIFFERENTIATION STAT 09/27/2023 2:18 PM EDT from Last 3 Months or Most Recently Relevant to Health Maintenance Results * ED HIV 1/2 Antibody/Antigen Screen w/Reflex to HIV 1/2 Differentiation (09/27/2023 2:18 PM EDT) HIV 1 & 2 Antibody/Antigen Screen Non Reactive Non Reactive 09/27/2023 3:23 PM EDT [facility] Comment:Screening for HIV 1 & 2 antibodies, and P24 antigen is NONREACTIVE. No confirmatory testing is required. Blood Venous blood specimen / Unknown Venipuncture / Unknown 09/27/2023 2:18 PM EDT 09/27/2023 2:42 PM EDT us Mary Baez PA LAB BLOOD ORDERABLES Final Resu lt Performing Organization Address City/[facility] Co de Phone Number [facility] [address] [place] [address] * Hepatitis C Antibody - ED (09/27/2023 2:18 PM EDT) Hepatitis C Antibody Negative Negative 09/27/2023 3:24 PM EDT [facility] Blood Venous blood specimen / Unknown Venipuncture / Unknown 09/27/2023 2:18 PM EDT 09/27/2023 2:43 PM EDT us Mary Baez PA LAB BLOOD ORDERABLES Final Resu lt Performing Organization Address City/[facility]/ZIP Co de Phone Number [facility] [address] [place] [address] from Last 3 Months or Most Recently Relevant to Health Maintenance Insurance [employer] Care Teams Trial Consultant Relationship Specialty Start Date End Date Juana Bowles APRN [address] [place] [address] PCP - General 03/17/22
== END 2024-11-07 23:59 | disposition home or self-care (01) ==
LOC: RAD 15:45
PROVIDERS: PCP Nurse Practitioner Family; Visit Provider Nurse Practitioner Family
DX: M54.42 Lumbago with sciatica, left side (principal); M53.3 Sacrococcygeal disorders, not elsewhere classified; V89.2XXA Person injured in unspecified motor-vehicle accident, traffic, initial encounter
CPT/HCPCS: 72220

== ENCOUNTER 2024-11-11 15:26 | Outpatient (CLI) | payer OTHER, BC, SELFPAY ==
--- NOTE | 2024-11-11 15:00 | US_ITS ---
FINAL REPORT TECHNIQUE: Ultrasound images of the testicles were obtained bilaterally. Color Doppler images were obtained. CLINICAL HISTORY: testicular pain FINDINGS: The testicles are normal in size and echotexture bilaterally. Arterial flow is identified bilaterally. No intratesticular masses are identified. There are minimal hydroceles bilaterally. IMPRESSION: No evidence of testicular mass or torsion. Reviewed, Interpreted and Dictated by Josue Toth MD Transcribed by Elvira Pearson Authenticated and [facility]
--- OUTSIDE RECORDS SUMMARY | 2024-11-11 15:30 | XMS_ITS | Clinical Summary ---
Author Organization [facility] Address [address] [place] [address] Care Team Providers Care Director College Name Role Phone BowlesJuana al Shailesh SANTIAGO Primary Care Provider [phone] Allergies Active Allergy Reactions Criticality Noted Date [...] Health Maintenance Due Date Last Done Comments [facility]-Infant/Child/Adol SDOH Screenings 1992 [facility]-Varicella Vaccines (1 of 2 - 13+ 2-dose series) 2005 HPV Vaccines (1 - Male 3-dose series) 08/20/2007 [facility]- SDOH Screenings 2010 [facility]-Adult SDOH Screenings 2010 [facility]-DTaP,Tdap,and Td Vaccines (1 - Tdap) 08/20/2011 [facility]-Hepatitis B Vaccines (1 of 3 - 19+ 3-dose series) 08/20/2011 [facility]-Depression Screening 04/02/2023 04/02/2022 [facility]-[id number]-14 Vaccine (1 - season) 2024 [facility]-Influenza Vaccine [...] ORDERABLES Final Resu lt Performing Organization Address City/[facility] Co de Phone Number [facility] [address] [place] [address] * Hepatitis C Antibody - ED (09/27/2023 2:18 PM EDT) Hepatitis C Antibody Negative Negative 09/27/2023 3:24 PM EDT [facility] Blood Venous blood specimen / Unknown Venipuncture / Unknown 09/27/2023 2:18 PM EDT 09/27/2023 2:43 PM EDT us Mary Baez PA LAB BLOOD ORDERABLES Final Resu lt Performing Organization Address City/[facility]/ZIP Co de Phone Number [facility] [address] [place] [address] from Last 3 Months or Most Recently Relevant to Health Maintenance Insurance [employer] Care Teams Director College Relationship Specialty Start Date End Date Juana Bowles APRN [address] [place] [address] PCP - General 03/17/22
== END 2024-11-11 23:59 | disposition home or self-care (01) ==
PROVIDERS: PCP Nurse Practitioner Family; Visit Provider Nurse Practitioner Family
DX: N50.819 Testicular pain, unspecified (principal); N50.89 Other specified disorders of the male genital organs
CPT/HCPCS: 76870

== ENCOUNTER 2024-11-25 06:50 | Outpatient (CLI) | payer OTHER, BC, SELFPAY ==
--- OUTSIDE RECORDS SUMMARY | 2024-11-25 06:53 | XMS_ITS | Clinical Summary ---
Author Organization [facility] Address [address] [place] [address] Care Team Providers Care Counter Person Name Role Phone BowlesJuana al Shailesh SANTIAGO Primary Care Provider [phone] Allergies Active Allergy Reactions Criticality Noted Date [...] 3-dose series) 08/20/2011 [facility]-Depression Screening 04/02/2023 04/02/2022 [id number] Vaccine (1 - season) 2024 [facility]-Influenza Vaccine [...] ORDERABLES Final Resu lt Performing Organization Address City/[facility] Co de Phone Number [facility] [address] [place] [address] * Hepatitis C Antibody - ED (09/27/2023 2:18 PM EDT) Hepatitis C Antibody Negative Negative 09/27/2023 3:24 PM EDT [facility] Blood Venous blood specimen / Unknown Venipuncture / Unknown 09/27/2023 2:18 PM EDT 09/27/2023 2:43 PM EDT us Mary Baez PA LAB BLOOD ORDERABLES Final Resu lt Performing Organization Address City/[facility]/ZIP Co de Phone Number [facility] [address] [place] [address] from Last 3 Months or Most Recently Relevant to Health Maintenance Insurance [employer] Care Teams Counter Person Relationship Specialty Start Date End Date Juana Bowles APRN [address] [place] [address] PCP - General 03/17/22
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
== END 2024-11-25 23:59 | disposition home or self-care (01) ==
LOC: RAD 06:51
PROVIDERS: PCP Nurse Practitioner Family; Visit Provider Nurse Practitioner Family
DX: M47.27 Other spondylosis with radiculopathy, lumbosacral region (principal); V89.2XXA Person injured in unspecified motor-vehicle accident, traffic, initial encounter
CPT/HCPCS: 72148

== ENCOUNTER 2024-11-28 16:00 | Outpatient (RCR) | payer OTHER, BC, SELFPAY ==
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
== END 2024-11-28 23:59 | disposition home or self-care (01) ==
LOC: PT 16:00
PROVIDERS: PCP Nurse Practitioner Family; Visit Provider Nurse Practitioner Family
DX: S39.012A Strain of muscle, fascia and tendon of lower back, initial encounter (principal); M54.42 Lumbago with sciatica, left side; V89.2XXA Person injured in unspecified motor-vehicle accident, traffic, initial encounter
CPT/HCPCS: 97014; 97110; 97161; G0283

== ENCOUNTER 2024-12-26 16:00 | Outpatient (RCR) | payer OTHER, BC, SELFPAY ==
--- NOTE | 2024-12-20 17:04 | HMH.RHREAS ---
Rehab Reassessment Rehab OP Re-assessment Start: 11/30/24 15:50 Freq: Status: Active Protocol: Document 12/20/24 15:51 FERNANDO (Rec: 12/20/24 17:03 [email or web address] [id number]) E-signed By Natalee Long, PT Oswestry Index Section 1 Pain Intensity The pain is moderate and does not vary much Section 2 Personal Care ( increase the pain, but I manage not to change my way of Washing,Dresing) doing it Section 3 Lifting I can only lift very light weights at most Section 4 Walking I cannot walk more than 1/4 mile without increasing pain Section 5 Sitting Pain prevents me from sitting for more than 1/2 hour Section 6 Standing I cannot stand more than 1/2 hour without increasing pain Section 7 Sleeping Because of my pain, my normal night's sleep is less than 6 hours sleep Section 8 Social Life Pain has restricted my social life to my home Section 9 Traveling Pain restricts me to short necessary journeys under 30 minutes Section 10 Changing Degreee of My pain is neither getting better or worse Pain Score and Risk Level Oswestry Sc 33 Oswestry Risk Level Severe Disability Rehab Re-assessment Subjective Subjective Pt reports he feels 20% improved since starting PT. Pt reports he saw improvement in the first two weeks of starting therapy then feels that progress has plateaued . Pt reports he continues to have central low back pain rated 7/10 on VAS at worst and intermittent radiating pain into the R>L lower extremities to his knee. Pt reports pain is aggravated by prolonged sitting, standing, walking, stair climbing, bending, lifting and twisting. Pt denies paresthesia or b/b dysfunction. Pt reports he saw his doctor a couple weeks ago and was recommended to continued PT and was provided with Lidocaine patches with have assisted some with pain/ soreness. Pt states he returns to his doctor in 2 weeks for his next follow-up visit. Pt reports compliance with HEP without issues. Objective Objective Notes Palpation: 3/4 TTP of L4-5, L5-S1 Lumbar AROM: flex 25, ext 10, LF 10 BLE MMT: 4+/5 grossly with exception of hip ext/abd 4/5 Gait: antalgic Assessment Progress Assessment Slower Than Expected Assessment Notes Pt has attended 7 PT treatment sessions consisting of aerobic exercise, lumbar extension based program, neural glides, LE stretching, core strengthening, manual therapy, modalities and HEP with good tolerance. Pt demonstrated improved subjective report of pain, SANCHO score, and only slight improvement in lumbar AROM. Pt continues to report severe LBP and intermittent radiating pain with functional activities and limited lumbar AROM. Overall, the pt would continue to benefit from skilled PT to further improve subjective report of pain, lumbar AROM, strength, and functional/ occupational activity tolerance to assist with return to PLOF. Patient goals met ST/5 Goals Not Met lumbar AROM, gait, LTG Revised Goals n/a Plan Plan Continue POC Frequency of Therapy 2x/week Duration of therapy 4 more weeks Time and Billing Re-Eval Time 12 Re-Eval Billing 0 Units Charge for PT No reassessment? Charge for OT No reassessment? PHYSICIAN CERTIFICATION: I certify the specified therapy services for Dario Khan are required, authorized, and reviewed every 30 days.
== END 2024-12-26 23:59 | disposition home or self-care (01) ==
LOC: PT 16:00
PROVIDERS: PCP Nurse Practitioner Family; Visit Provider Nurse Practitioner Family
DX: M54.42 Lumbago with sciatica, left side (principal); S39.012A Strain of muscle, fascia and tendon of lower back, initial encounter; V89.2XXA Person injured in unspecified motor-vehicle accident, traffic, initial encounter
CPT/HCPCS: 20560; 97014; 97110; 97140; G0283

== ENCOUNTER 2025-01-19 15:00 | Outpatient (RCR) | payer OTHER, BC, SELFPAY ==
--- NOTE | 2025-01-19 18:05 | HMH.RHREAS ---
Rehab Reassessment Rehab OP Re-assessment Start: 01/02/25 09:08 Freq: Status: Active Protocol: Document 01/19/25 17:52 WANGILA (Rec: 01/19/25 18:05 FERNANDO [id number]) E-signed By Natalee Long, PT Oswestry Index Section 1 Pain Intensity The pain comes and goes and is moderate Section 2 Personal Care ( increase the pain, but I manage not to change my way of Washing,Dresing) doing it Section 3 Lifting I can only lift very light weights at most Section 4 Walking I cannot walk more than one mile wihtout increasing pain Section 5 Sitting Pain prevents me from sitting for more than one hour Section 6 Standing I cannot stand more than 1 hour without increasing pain Section 7 Sleeping Because of my pain, my normal night's sleep is less than 6 hours sleep Section 8 Social Life Pain has restricted my social life to my home Section 9 Traveling Pain restricts me to short necessary journeys under 30 minutes Section 10 Changing Degreee of My pain seems to be getting better, but improvement is Pain slow Score and Risk Level Oswestry Sc 27 Oswestry Risk Level Severe Disability Rehab Re-assessment Subjective Subjective Pt reports he feels 30% improved since starting PT. PT reports continued constant central low back pain with intermittent radiating pain into the right posterior leg to his knee. Pt reports pain at worst as 7/10 aggravated by bending, lifting, prolonged sitting, prolonged standing and prolonged walking. Pt reports compliance with his HEP which he states assist with pain temporarily. Pt reports he is scheduled to see a interior specialist on 02/09/25 due to continued severity of pain. Objective Objective Notes Palpation: 2/4 TTP of L3-L4, L4-5, L5-S1 Lumbar AROM: flex 38, ext 12, LF 10 BLE MMT: 4+/5 grossly with exception of hip ext/abd 4/5 Gait: non-antalgic Assessment Progress Assessment Slower Than Expected Assessment Notes Pt has attended 15 PT treatment sessions consisting of aerobic exercise, lumbar extension based program, neural glides, LE stretching, core strengthening, manual therapy, dry needling, modalities and HEP with good tolerance. Pt demonstrate slight improvement in lumbar AROM and SANCHO score this date compared to the previous reassessment; however, continues to report moderate-severe low back pain and intermittent radiating pain with limited lumbar AROM. Pt is scheduled to see a orthopaedic surgeon on 02/09/25 therefore will hold formal PT treatment until further recommendations are provided due to minimal objective changes and continued severity of pain. 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 Resume if further conservative care is recommended. Therapeutic Exercise Yes Including Home Exercise Program Manual Therapy Yes Techniques Neuromuscular Re- Yes education Therapeutic Yes Activities to Return to Previous Functional/Work Level ADL/Self Care Yes Education Dry Needling Yes Thermal Modalities Yes Electrical Yes Stimulation Ultrasound/ Yes Phonophoresis Iontophoresis Yes Massage Yes Eval/Re-Eval Yes Time and Billing Re-Eval Time 11 Re-Eval Billing 0 Units Charge for PT No reassessment? Charge for OT No reassessment? PHYSICIAN CERTIFICATION: I certify the specified therapy services for Dario Khan are required, authorized, and reviewed every 30 days.
== END 2025-01-19 23:59 | disposition home or self-care (01) ==
LOC: PT 15:00
PROVIDERS: PCP Nurse Practitioner Family; Visit Provider Nurse Practitioner Family
DX: M54.42 Lumbago with sciatica, left side (principal); S39.012A Strain of muscle, fascia and tendon of lower back, initial encounter; V89.2XXA Person injured in unspecified motor-vehicle accident, traffic, initial encounter
CPT/HCPCS: 20560; 97014; 97110; 97140; G0283

== ENCOUNTER 2025-02-21 07:44 | Outpatient (RCR) | payer OTHER, BC, SELFPAY | END 2025-02-21 23:59 | disposition home or self-care (01) | LOC: PT 07:44 | PROVIDERS: Visit Provider Orthopaedic Surgery | DX: M51.369 Other intervertebral disc degeneration, lumbar region without mention of lumbar back pain or lower extremity pain (principal) | CPT/HCPCS: 97162 ==

== ENCOUNTER 2025-03-16 16:00 | Outpatient (RCR) | payer OTHER, BC, SELFPAY | END 2025-03-16 23:59 | disposition home or self-care (01) | LOC: PT 16:00 | PROVIDERS: Visit Provider Orthopaedic Surgery | DX: M51.379 Other intervertebral disc degeneration, lumbosacral region without mention of lumbar back pain or lower extremity pain (principal) | CPT/HCPCS: 97014; 97110; 97112; 97530; G0283 ==

== ENCOUNTER 2025-04-26 16:00 | Outpatient (RCR) | payer OTHER, BC, SELFPAY | END 2025-04-26 23:59 | disposition home or self-care (01) | LOC: PT 16:00 | PROVIDERS: PCP Nurse Practitioner Family; Visit Provider Orthopaedic Surgery | DX: M51.A4 Intervertebral annulus fibrosus defect, small, lumbosacral region (principal) | CPT/HCPCS: 97014; 97110; 97530; G0283 ==

== ENCOUNTER 2025-05-30 16:00 | Outpatient (RCR) | payer OTHER, BC, SELFPAY | END 2025-05-30 23:59 | disposition home or self-care (01) | LOC: PT 16:00 | PROVIDERS: PCP Nurse Practitioner Family; Visit Provider Orthopaedic Surgery | DX: M51.379 Other intervertebral disc degeneration, lumbosacral region without mention of lumbar back pain or lower extremity pain (principal) | CPT/HCPCS: 97110; 97530 ==